=== PATIENT | female | born 1945 | race Caucasian/White ===

== ENCOUNTER 2024-05-02 12:19 | Outpatient (REF) | payer MEDICARE, SELFPAY | END 2024-05-02 12:20 | disposition home or self-care (01) | LOC: HO.LAB 12:19 | PROVIDERS: PCP Nurse Practitioner Family; Visit Provider Nurse Practitioner Family | DX: Z76.89 Persons encountering health services in other specified circumstances (principal); N39.0 Urinary tract infection, site not specified; I10 Essential (primary) hypertension; E78.2 Mixed hyperlipidemia; E03.9 Hypothyroidism, unspecified; F41.1 Generalized anxiety disorder; M81.0 Age-related osteoporosis without current pathological fracture; N90.4 Leukoplakia of vulva; F43.21 Adjustment disorder with depressed mood; M54.10 Radiculopathy, site unspecified; M70.71 Other bursitis of hip, right hip; Y93.9 Activity, unspecified | CPT/HCPCS: 87086; 96127; 99202 ==

== ENCOUNTER 2024-05-02 12:19 | Outpatient (AMB) | payer MEDICARE, SELFPAY ==
--- NOTE | 2024-05-02 12:26 | MHC.PC.OV ---
Vital Signs 05/02/24 12:40 Height 5 ft 7 in Weight 157 lb 2 oz BMI 24.6 BP 142/76 H Blood Pressure Location Rt brachial Position Sitting Respiration 13 Pulse 80 Pulse Source Pulse Oximeter Temp 97.9 F Temp Source Oral Pulse Oximetry (%) 97 Oxygen Delivery Method Room Air Intake Visit Reasons: Est. Care Intake Note: new patient to establish care, patient also needs refill on meds. Shield Cleaner Required: No Allergies clindamycin Allergy (Severe, Verified 05/02/24 12:55) Hives penicillins Allergy (Severe, Uncoded 05/02/24 12:55) Hives Medication List - Last Reconciled 05/02/24 by Yuliya Brandt, RESEARCH/PROGRAM DIRECTOR- alendronate mg PO amlodipine mg PO DAILY clobetasol 0.05% topical gabapentin 100 mg PO DAILY PRN levothyroxine mcg PO DAILY lorazepam 0.5 mg PO Q6H PRN lovastatin mg PO DAILY meclizine 25 mg PO TID PRN meloxicam mg PO DAILY naproxen 500 mg PO BID sulfamethoxazole-trimethoprim 400-80 mg tabs PO Tobacco use date assessed: 05/02/24 Fall risk assessment: No Falls in past year Last assessed Fall Risk: 05/02/24 Dental Screening Dental Screen Date: 05/02/24 Did you have a dental visit in the last 12 months?: Yes Did you have a dental problem in the last 6 months where you did not have access to dental care?: No Was dental information given to patient?: Patient has dentist HPI HPI Comments History of Present Illness Details [facility] 78 y/o F with hypothyroid, HLD, diverticulitis, renal cyst (CT 06/2019 simple bilat, recurrent UTI, lichen sclerosis, VERENICE, HTN, spigelian hernia (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/2019 small fat cont RLQ) SurgHx: appendectomy, tonsillectomy, hysterectomy, anterior cervical discectomy c5-7, lower anterior sigmoid colon resection 2016 d/t recurrent diverticulitis, R shoulder surgery 2016, RLQ incisional hernia repair w/ mesh 2019 FHx: Mom dementia, Dad stomach ca age 86, SocHx: , Addy, this year Health Maintenance: Colon: 2007 Mammo 06/2023 DEXA 01/2023 osteopenia PAP aged out Vaccines: All UTD to include flu AAA screen: EKG: Hunter of Care: RN CLINICAL QUALITY Gen Surg Ortho Neurosurgery History of Present Illness - The patient is a 78-year-old female presenting to [facility] Previous PCP: Kourtney - records reviewed prior to visit - Previous episodes of recurrent UTIs, often precipitated by stress or nervous events, managed with Bactrim (currently taken 1/2 tab QD for prophylaxis). Feels she has acute UTI that started a few days ago; Symptoms include burning after urination and an increased sense of pressure, with no fever, chills or vomiting reported. Essential Hypertension (on amlodipine), Hyperlipidemia (on lovastatin), and hypothyroidism (on levothyroxine). - osteoporosis managed with Fosamax, and Generalized Anxiety Disorder, periodically managed with lorazepam. - Chronic cervical radiculopathy intermittently treated with gabapentin, and a history of lichen sclerosus managed with clobetasol cream and current R hip bursitis managed with meloxicam by ortho, needs injection but this was delayed after recent of , Otis. is tomorrow. - Recently experienced significant emotional distress due to the loss of spouse. Both children live out of state. Physical Exam General: Well developed, well nourished, in no acute distress. Appears stated age. Head: Normocephalic, atraumatic. Eyes: Pupils are equal, round and reactive to light and accommodation. Conjunctivae are clear. Lungs: Clear to auscultation bilaterally. No rales, rhonchi or wheeze noted. Good air flow in all benito. Heart: Regular rate and rhythm. No murmurs, click, rubs or gallops are noted. Abdomen: Bowel sounds present in all quadrants. The abdomen is soft, nontender, with no masses or organomegaly noted. No hernias are noted. Psych: Mood and affect appropriate, though patient reports recent loss of and feelings of devastation. Results - Lab Tests: Urinalysis - see results below. Urine cx pending Discussion Notes I discussed the possibility of a urinary tract infection given the symptoms of burning and pressure after urination. A urinalysis will help confirm the diagnosis and guide further treatment. We talked about the need to refill medications through the mail-order pharmacy, and ensuring lorazepam is sent to the local pharmacy due to regulatory guidelines. I advised the patient about the non-fasting lab tests needed to monitor her thyroid function, vitamin levels, and other routine health checks. We reviewed the importance of managing stress, which seems to contribute to the recurrence of UTIs. The patient was provided with anticipatory guidance about self-care following her recent personal loss and was instructed to use the patient portal for easier communication regarding any medical needs or prescription refills. Assessment and Plan 1. Chronic urinary tract infection: - Urinary symptoms suggest an infection. Treat empirically with bactrim ds x 3 days, urine cx. Change tx plan prn 2. Essential Hypertension: - Continue management with amlodipine. 3. Hyperlipidemia: - Maintain lovastatin therapy, consistent with prior management. 4. Hypothyroidism: - Continue levothyroxine, monitor thyroid levels through lab testing. 5. Osteoporosis: - Ongoing management with alendronate, refills have been ensured. managed by straight truck driver 6. Generalized Anxiety Disorder: - Lorazepam to be continued as per need for anxiety, particularly noted stressors due to personal loss. Ok to use gabapentin at hs to help w anxiety and insomnia, too, with preference to limit ativan. 7. Radiculopathy: - Continued gabapentin use advised for symptomatic relief. 8. Lichen Sclerosus: - Continue topical clobetasol; lesions currently resolved. 9. Bursitis R hip: - Continued management with meloxicam, monitoring symptoms. Aware to not mix naproxen and meloxicam, one or the other. Patient Instructions - Continue all current medications as prescribed. - Follow up with urinalysis results to confirm UTI and await further instructions. - Refill medications via mail pharmacy; local pharmacy for lorazepam. - Use relaxation techniques and take lorazepam for anxiety as required. - Get lab work completed at your convenience, non-fasting required. - Utilize the patient portal for communication and prescription requests. - Maintain current health lifestyle and wellness activities. - Seek immediate care if symptoms worsen or new symptoms arise. - RTO 6 months sAWV, sooner PRN Consent Patient was informed and verbally consented to the use of an ambient scribe for clinic note documentation during this visit. Total time spent caring for the patient today was 62 minutes. This includes time spent before the visit reviewing the chart, time spent during the visit, and time spent after the visit on documentation, reviewing laboratory results, diagnostic imaging, medications, performing a medically necessary evaluation, counseling on diagnoses, care coordination, ordering appropriate tests, ordering appropriate medications, review of tests performed by other providers, reporting test results with the patient, communication with other healthcare providers. [facility] Medical History (Updated 05/02/24 @ 15:28 by Yuliya Brandt [facility]) Anxiety Arthritis Biceps tendinitis of shoulder (~2019) Colon, diverticulosis (~2016) H/O thyroid disease Hernia (~2019) High cholesterol HTN (hypertension) Osteoporosis Surgical History (Updated 05/02/24 @ 12:48 by King Adkins MA) H/O elbow surgery (~2000) H/O shoulder surgery (~2016) H/O: hysterectomy History of colonoscopy (~2006) History of incisional hernia repair (~2019) History of mammogram (~2023) Hx of spinal surgery (~2015) Family History (Updated 05/02/24 @ 12:51 by King Adkins MA) Mother HTN (hypertension) Diabetes Sister HTN (hypertension) Diabetes Thyroid disorder High cholesterol Father Stomach cancer Social History (Updated 05/02/24 @ 12:43 by King Adkins MA) Household Members: None Both parents involved: No Caregiver staying overnight: No Housing: House Are you a primary critical care paramedic to a significant other at home: No Do you presently have visiting nurse or other home services: No 75 years or older and lives alone: No Alcohol intake: current Alcohol intake frequency: a few times a month Patient Tobacco Use Status: Never used Tobacco e-Cigarette/Vaping Use: Never Used Second Hand Smoke Exposure: No service: No Current occupational status: retired Cognitive needs: No Hearing needs: No Vision needs: Yes (wear glasses) Questionnaire PHQ-9 Over the last 2 weeks, how often have you been bothered by any of the following problems? 1. Little interest or pleasure in doing things: not at all 2. Feeling down, depressed, or hopeless: not at all 3. Trouble falling or staying asleep, or sleeping too much: not at all 4. Feeling tired or having little energy: not at all 5. Poor appetite or overeating: not at all 6. Feeling bad about yourself - or that you are a failure or have let yourself or your family down: not at all 7. Trouble concentrating on things, such as reading the newspaper or watching television: not at all 8. Moving or speaking so slowly that other people could have noticed. Or the opposite - being so fidgety or restless that you have been moving around a lot more than usual: not at all 9. Thoughts that you would be better off or of hurting yourself in some way: not at all Total score: 0 Depression Screening Interpretation: Negative Depression Screening Done: Yes 60056 - PHQ-9 Billing: Yes Source: Developed by Drs. Ervin Daniel, Tessie Palumbo, Elliot Fonseca and colleagues, with an educational toribio from [employer]. Thrive Questionnaire Date Thrive assessed: 05/02/24 I am a: Patient What is your living situation today?: I have a steady place to live Within the past 12 months, did the food you bought not last and you didn't have the money to get more?: Never true Within the past 12 months, did you worry whether your food would run out before you got money to buy more?: Never true Do you have trouble paying for medicines?: Yes Do you have trouble getting transportation to medical appointments?: No Do you have trouble paying your heating and electricity bill?: No Do you have trouble taking care of your child, family member or friend?: No Do you have trouble with day-to-day activities such as bathing, preparing meals, shopping, managing finances, etc.?: No Are you currently unemployed and looking for a job?: No Are you interested in more education?: No Please select the resources that you would like help with: None Currently or been in a relationship where the following occur: No concerns reported THRIVE Score: 0 AUDIT C Alcohol Use Questionnaire (AUDIT-C) 1. How often do you have a drink containing alcohol?: Monthly or less 2. How many drinks containing alcohol do you have on a typical day when you are drinking?: 1 or 2 3. How often do you have six or more drinks on one occasion?: Never Total Score: 1 Score Reviewed/Action Taken: Yes VERENICE-7 AMB Questionnaire VERENICE-7 Date VERENICE - 7 assessed: 05/02/24 Feeling nervous, anxious, or on edge: 0 = Not at all Not being able to stop or control worryin = Not at all Worrying too much about different things: 0 = Not at all Trouble relaxin = Not at all Being so restless that it is hard to sit still: 0 = Not at all Becoming easily annoyed or irritable: 0 = Not at all Feeling afraid as if something awful might happen: 0 = Not at all Total VERENICE-7 score (0-4 normal; 5-9 mild; 10-14 moderate; 15-21 severe): 0 Source: Developed by Drs. Ervin Daniel, Tessie Palumbo, Elliot Fonseca and colleagues, with an educational toribio from [employer]. VERENICE-7 Assessment Billing VERENICE-7 Assessment Tool: VERENICE-7 Assessment 42337 Physical exam (Primary Care) Vital Signs: Last Vital Signs Temp 97.9 F 05/02/24 12:40 Pulse 80 05/02/24 12:40 Resp 13 05/02/24 12:40 BP 142/76 H 05/02/24 12:40 Pulse Ox 97 05/02/24 12:40 Oxygen Delivery Method Room Air 05/02/24 12:40 BMI result Body Mass Index 24.6 Tobacco/Smoking Status: Tobacco use Status Tobacco use date assessed 05/02/24 05/02/24 12:42 Patient Tobacco Use Status Never used Tobacco 05/02/24 12:43 e-Cigarette/Vaping Use Never Used 05/02/24 12:43 PHQ-9: PHQ-9 Score PHQ-9: Total score 0 05/02/24 12:54 Depression Screening Interpretation: Negative Thrive Assessment: Date of Thrive Assessment Date Thrive assessed 05/02/24 05/02/24 12:26 Currently or been in a relationship where the following occur: No concerns reported Results AMB Urinalysis, Automated UA Leukoctes 15 Reanna/uL Last Edit by King Adkins MA on 05/02/24 13:17 UA Nitrite Negative Last Edit by King Adkins MA on 05/02/24 13:17 UA Urobilinogen 3.5 mg/dL Last Edit by King Adkins MA on 05/02/24 13:17 UA Protein 0 mg/dL Last Edit by King Adkins MA on 05/02/24 13:17 UA pH 6.0 Last Edit by King Adkins MA on 05/02/24 13:17 UA Blood 0 Armando/uL Last Edit by King Adkins MA on 05/02/24 13:17 UA Specific Standard 1.015 Last Edit by King Adkins MA on 05/02/24 13:17 UA Ketone Positive Last Edit by King Adkins MA on 05/02/24 13:17 UA Bilirubin 0 mg/dL Last Edit by King Adkins MA on 05/02/24 13:17 UA Glucose 0 mg/dL Last Edit by King Adkins MA on 05/02/24 13:17 Results Reviewed Results Reviewed: Laboratory Last Values Urine pH (Auto) 6.0 05/02/24 12:54 Specific Standard (Auto) 1.015 05/02/24 12:54 Urine Protein (Auto) 0 mg/dL 05/02/24 12:54 Glucose (UA)(Auto) 0 mg/dL 05/02/24 12:54 Urine Ketones (Auto) Positive 05/02/24 12:54 Urine Blood (Auto) 0 Armando/uL 05/02/24 12:54 Urine Nitrite (Auto) Negative 05/02/24 12:54 Urine Bilirubin (Auto) 0 mg/dL 05/02/24 12:54 Urine Urobilinogen (Auto) 3.5 mg/dL 05/02/24 12:54 Leukocyte Esterase (Auto) 15 Reanna/uL 05/02/24 12:54 Coding Level of Care Code New Pt Level 5 (53886) Complex EM visit Add On G2211 Diagnoses Encounter to establish care Z76.89 Acquired hypothyroidism E03.9 Mixed hyperlipidemia E78.2 Hyperlipidemia type: mixed hyperlipidemia Essential (primary) hypertension I10 Recurrent UTI N39.0 VERENICE (generalized anxiety disorder) F41.1 Age-related osteoporosis without current pathological fracture M81.0 Presence of current pathological fracture: without current pathological fracture Osteoporosis type: age-related Lichen sclerosus of female genitalia N90.4 Grief F43.21 Additional Codes VERENICE-7 Assessment Billing - VERENICE-7 Assessment Tool: VERENICE-7 Assessment 18049 ([id number]) PHQ-9 - 68826 - PHQ-9 Billing: Yes ([id number]) Assessment & Plan Assessment & Plan (1) Encounter to establish care: Code(s): Z76.89 - Persons encountering health services in other specified circumstances (2) Acquired hypothyroidism: Code(s): E03.9 - Hypothyroidism, unspecified Category: Medical (3) Hyperlipidemia: Code(s): E78.5 - Hyperlipidemia, unspecified Category: Medical Qualifiers: Hyperlipidemia type: mixed hyperlipidemia Qualified Code(s): E78.2 - Mixed hyperlipidemia (4) Essential (primary) hypertension: Code(s): I10 - Essential (primary) hypertension Category: Medical (5) Recurrent UTI: Code(s): N39.0 - Urinary tract infection, site not specified Category: Medical (6) VERENICE (generalized anxiety disorder): Code(s): F41.1 - Generalized anxiety disorder Category: Medical (7) Osteoporosis: Comment: dexa 2022 Code(s): M81.0 - Age-related osteoporosis without current pathological fracture Category: Medical Qualifiers: Presence of current pathological fracture: without current pathological fracture Osteoporosis type: age-related Qualified Code(s): M81.0 - Age-related osteoporosis without current pathological fracture (8) Lichen sclerosus of female genitalia: Code(s): N90.4 - Leukoplakia of vulva Category: Medical (9) Grief: Code(s): F43.21 - Adjustment disorder with depressed mood Plan . Orders: Orders Complete Blood Count no Diff Today E03.9 - Hypothyroidism, unspecified, E78.5 - Hyperlipidemia, unspecified, I10 - Essential (primary) hypertension, M85.80 - Other specified disorders of bone density and structure, unspecified site Comprehensive Met. Panel Today E03.9 - Hypothyroidism, unspecified, E78.5 - Hyperlipidemia, unspecified, I10 - Essential (primary) hypertension, M85.80 - Other specified disorders of bone density and structure, unspecified site Microalbumin, Random (w Creat) Today E03.9 - Hypothyroidism, unspecified, E78.5 - Hyperlipidemia, unspecified, I10 - Essential (primary) hypertension, M85.80 - Other specified disorders of bone density and structure, unspecified site TSH reflex Free T4 Today E03.9 - Hypothyroidism, unspecified, E78.5 - Hyperlipidemia, unspecified, I10 - Essential (primary) hypertension, M85.80 - Other specified disorders of bone density and structure, unspecified site Vitamin D 25-OH Total Today E03.9 - Hypothyroidism, unspecified, E78.5 - Hyperlipidemia, unspecified, I10 - Essential (primary) hypertension, M85.80 - Other specified disorders of bone density and structure, unspecified site AMB Urinalysis Automated Today Z13.9 - Encounter for screening, unspecified Hemoglobin A1c Today E03.9 - Hypothyroidism, unspecified, E78.5 - Hyperlipidemia, unspecified, I10 - Essential (primary) hypertension, M85.80 - Other specified disorders of bone density and structure, unspecified site Lipid Panel Today E03.9 - Hypothyroidism, unspecified, E78.5 - Hyperlipidemia, unspecified, I10 - Essential (primary) hypertension, M85.80 - Other specified disorders of bone density and structure, unspecified site Vitamin B12 and Folate Today E03.9 - Hypothyroidism, unspecified, E78.5 - Hyperlipidemia, unspecified, I10 - Essential (primary) hypertension, M85.80 - Other specified disorders of bone density and structure, unspecified site Urine Culture Today N39.0 - Urinary tract infection, site not specified Medications: New gabapentin 100 mg PO DAILY PRN 90 caps 2RF pain insomnia anxiety levothyroxine 100 mcg PO DAILY 90 days 90 tabs 2RF naproxen 500 mg PO BID PRN 180 tabs 0RF pain meclizine 25 mg PO TID PRN 90 tabs 0RF dizziness lorazepam 0.5 mg PO Q6H PRN 30 tabs 0RF anxiety amlodipine 2.5 mg PO DAILY 90 tabs 2RF lovastatin 40 mg PO DAILY 90 tabs 2RF meloxicam 15 mg PO DAILY 90 tabs 0RF sulfamethoxazole-trimethoprim 400-80 mg 0.5 tabs PO DAILY 90 tabs 2RF sulfamethoxazole-trimethoprim 800-160 mg (Bactrim DS) TO BE USED TO TREAT ACUTE UTI ONLY 1 tab PO BID 3 days 6 tabs 1RF Patient Instructions: Walk-In Care (Urgent Care): We Make it Easy Walk-in for urgent medical issues such as: ? Seasonal Allergies ? Insect Bites ? Cough ? Diarrhea ? Acute Asthma Attacks ? Back, Knee or Joint Pain ? Ear Infection ? Fever without a Rash ? Headaches ? Nausea ? [place] [facility], Rash or Skin Irritation ? Sore Throat ? Sports Physicals ? Vomiting Most insurances are accepted. Patients do not need to be part of the [facility] to seek care at the walk-in clinic. Locations [facility] , [place] [address] ? [phone] [facility] Walk-In Care in [place] provides services to ages 18 and over. Open Thursday-Thursday: 8 a.m. to 5 p.m. and Thursday: 9 a.m. to 3 p.m.* *Hours may vary due to staffing availability. To confirm Walk-In Care hours in [place], please call [phone]. [address] [place] [address] ? [phone] [facility] Walk-In Care in [place] provides services to ages 12 and over. Open Thursday-Thursday: 8 a.m. to 5 p.m. Hours may vary due to staffing availability. To confirm Walk-In Care hours in [place], please call [phone]. LABORATORY SERVICES: [facility] Lab ? Primary Location [address] [place] [address] Thursday through Thursday 6:00 AM ? 5:00 PM Thursday 7:00 AM ? 11:00 AM* [phone] The [facility] Lab is centrally located near the front entrance of the [facility] for easy outpatient access. Convenient parking is provided for outpatients. *Hours may vary due to staffing availability. To confirm Laboratory hours for any location, please call [phone]. Offsite Location For your convenience, we offer offsite laboratory draw stations at the following locations: [address] [place] [address] ? [address], [address] Thursday through Thursday 7:30 AM ? 1:00 PM* [phone] *Hours may vary due to staffing availability. To confirm Laboratory hours for any location, please call [phone]. [place] ? [address] Thursday through Thursday 6:00 AM ? 3:30 PM* Thursday 6:30 AM ? 3 PM* [phone] *Hours may vary due to staffing availability. To confirm Laboratory hours for any location, please call [phone] [place] [address] Thursday through Thursday 7:30 AM ? 4:00 PM* [phone] *Hours may vary due to staffing availability. To confirm Laboratory hours for any location, please call [phone] [place] [address] Thursday through 9:00 AM ? 4:00 PM* *Hours may vary due to staffing availability. To confirm Laboratory hours for any location, please call [phone]. Appointments are not necessary. Walk-ins are welcome. Like all the departments throughout the [facility], our Lab undergoes frequent reviews to ensure the quality and accuracy of test results, and our staff takes special pride in its status as a nationally accredited facility. Patient Portal: ONE PATIENT. ONE RECORD. BETTER CARE. [facility] has a fully integrated, cutting-edge mobile electronic health information system that has revolutionized the way we care for our patients and manage our organization. This system improves communication and coordination enabling us to provide safe, higher-quality care, and an overall positive experience for staff and patients. Our first priority, as always, is to deliver the highest quality care possible. The system is running in the background supporting that priority. This portal is for all [facility] services and practices. If you are experiencing any technical difficulties with enrolling or logging into the Patient Portal please complete the [facility] Patient Portal Technical Support Form. [facility] now offers a new secure on-line interactive tool for patients to review their health information ? ?Patient Portal. This interactive web portal will enable patients and their families to take an active role in their care by providing easy, secure access to their health information via the internet. The Patient Portal provides patients with instant access to their health information, including laboratory results, medications, allergies, demographic information, visit history, and more. In addition to managing their own care, parents and health care proxies with authorized consent will appreciate the ability to access the records of those individuals for whom they provide care. Please note: if you wish to gain access (Proxy) to another patient?s portal, you will be required to come to the Medical Records Department in person at [facility]. Both the patient giving proxy access and the proxy will need to provide photo identification and complete the appropriate authorization. The Patient Portal also allows track their appointments online. The [facility] Patient Portal also saves patients time by allowing them to submit updates to their demographic and contact information prior to their visits. Portal email notifications will also alert patients to any new activity on their portal, such as test results and new appointments. In order to initially enroll in the [facility] Patient Portal, you will need to enter some required information including the following: your [facility] Medical Record number your personal home email address name date of Please note: In order to enroll in the [facility] Patient Portal, we need to have your email address on file in your electronic medical record. ?The email address needs to be specific for one person (yourself) in order for your Portal enrollment to be successful. ?You can update your email address in person with our Registration staff when you are registering for a hospital visit. ?Otherwise, you will need to come to the Health Information Management (Medical Records) Department at [facility]. ?We are open from Thursday ? Thursday from 7:30 a.m. ? 4:30 p.m. ?You will be required to present a photo id. Once you have successfully enrolled in the Patient Portal, you will receive a one-time user id and password for the Portal, sent to your email address. ?This will allow you to log into the Patient Portal within 99 hrs and reset your own logon id and password, and define personal security questions. ?Once your permanent login and password have been set, you can log into the [facility] Patient Portal at any time via the blue button above or from the Portal Logon button on any page of the [facility] website. [facility] and [facility] encourage all of our patients to enroll in Patient Portal as it presents a valuable opportunity for patients and their families to actively participate in their care and stay healthy Welcome to [facility]. ?We look forward to working with you.
[2024-05-02 12:40] VITALS: BP 142/76; PULSE 80; RESP 13; TEMP 36.6; O2SAT 97; BMI 24.6
--- OUTSIDE RECORDS SUMMARY | 2024-05-02 14:29 | XMS_ITS | Clinical Summary ---
Author Organization [facility] it Address [address] [place] [address] Care Team Providers Care Gear Room Keeper Name Role Phone Millicent Cisse MD Primary Care Provider [phone] Surgical History Surgery Date Site/Laterality Comments APPENDECTOMY PROCEDURE: HISTORICAL APPENDECTOMY TONSILLECTOMY PROCEDURE: HISTORICAL TONSILLECTOMY HYSTERECTOMY PROCEDURE: HISTORICAL HYSTERECTOMY BACK SURGERY 02/07/2016 PROCEDURE: HISTORICAL BACK SURGERY; COMMENT: Anterior cervical discectomy c5-c7 interbody devices, fusion Medical History Medical History Date Comments Pelvic pressure syndrome DX:Pelv ic pressure syndrome Hypothyroidism DX:Hypothyroidis m Right shoulder pain DX:Right александр ulder pain Osteoporosis DX:Osteoporosis High cholesterol DX:High cholest marcin Diverticulitis DX:Diverticuliti s Lichen sclerosus of female genitalia 01/22/2018 DX:Lichen sclerosus of female genitalia; COMMENT: Followed by Dr. 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 Small, bowel. Ref gen surg Renal cyst 07/01/2019 DX:Renal cyst; C OMMENT: CT 06/2019. Simple, bilateral. F/U US 3 months ordered Family History Medical History Relation Name Comments No Known Problems Brother Hyperlipidemia Daughter No Known Problems Father No Known Problems Mother No Known Problems Sister 1 No Known Problems Sister 2 No Known Problems Son Autoimmune disease Neg Hx Breast cancer Neg Hx Colon cancer Neg Hx Coronary artery disease Neg Hx Diabetes Neg Hx Heart attack Neg Hx Heart failure Neg Hx Hypertension Neg Hx Mental illness Neg Hx Prostate cancer Neg Hx Sleep apnea Neg Hx Thyroid disease Neg Hx Relation Name Status Comments Brother Alive Daughter Alive Father (Age 86) stomach ca ncer, diagnosed age 86 Maternal Grandfather (Age 69) ca ncer Maternal Grandmother (Age 84) de mentia Mother (Age 84) dementia Paternal Grandfather (Age 68) Paternal Grandmother (Age 80) st omach cancer Sister 1 Alive htn Sister 2 Alive asthma Son Alive Social History Tobacco Use Types Packs/Day Years Used Date Smoking Tobacco: Former Cigarettes Q uit: 02/16/1989 Smokeless Tobacco: Never Alcohol Use Standard Drinks/Week Comments Yes 0 (1 standard drink = 0.6 oz pur e alcohol) Comments Unknown Sex and Gender Information Value Date Recorded Sex Assigned at Not on file Legal Sex Female 9:39 AM EST Gender Identity Not on file Sexual Orientation Not on file Obstetrics History Last Filed Vital Signs Vital Sign Reading Time Taken Comments Blood Pressure 128/64 11/23/2023 8:47 AM EDT Pulse 64 11/23/2023 8:47 AM EDT Temperature - - Respiratory Rate - - Oxygen Saturation - - Inhaled Oxygen Concentration - - Weight 72.3 kg (159 lb 6.4 oz) 11/23/2023 8:47 A M EDT Height 170.2 cm (5' 7 ) 11/23/2023 8:47 AM EDT Body Mass Index 24.97 11/23/2023 8:47 AM EDT Plan of Treatment Health Maintenance Due Date Last Done Comments Pneumococcal Vaccine: 50+ Years (1 of 1 - PCV) 08/22/1995 RSV Immunization Patients 60+ Years Old (1 - 1-dose 75+ series) 2020 Cholesterol Screening (Lipid Panel) 01/25/2022 Depression Screening 01/25/2022 Falls Risk Assessment 01/25/2022 Hepatitis C Screening 01/25/2022 Osteoporosis Screening (Bone Density Screening) 01/25/2022 Social Influencers of Health Screening 01/25/2022 Hypertension/CHF/CAD Annual BMP Blood Test 03/18/2023 COVID-19 Vaccine ( season) 2023 06/01/2021, 11/06/2020, 04/15/2020, Additional history exists Influenza Vaccine (#1) 2023 , 11/13/2021, 11/12/2020 DTaP,Tdap,and Td Vaccines (3 - Td or Tdap) 07/29/2032 07/29/2022, 11/23/2009 Zoster Vaccines Completed 10/14/2017, 08/14/2017 HIB Vaccines Aged Out No longer eligi ble based on patient's age to complete this topic HPV Vaccines Aged Out No longer eligi ble based on patient's age to complete this topic Hepatitis A Vaccines Aged Out No long er eligible based on patient's age to complete this topic Hepatitis B Vaccines Aged Out No long er eligible based on patient's age to complete this topic IPV Vaccines Aged Out No longer eligi ble based on patient's age to complete this topic MMR Vaccines Aged Out No longer eligi ble based on patient's age to complete this topic Meningococcal ACWY Vaccine Aged Out N o longer eligible based on patient's age to complete this topic Meningococcal B Vacine Aged Out No lo nger eligible based on patient's age to complete this topic RSV Immunization Patients Under 20 months Aged Out No longer eligible based on patient's age to complete this topic Varicella Vaccines Aged Out No longer eligible based on patient's age to complete this topic Advance Directives Documents on File Type Date Recorded Patient Cloth Folder Machine Expl anation Health Care Decision (hx) 05/12/2016 TIARRA CHURCH DIRECTIVE Care Teams Gear Room Keeper Relationship Specialty Start Date End Date Millicent Cisse MD PCP - General 07/23/23
--- OUTSIDE RECORDS SUMMARY | 2024-05-02 14:29 | XMS_ITS | Clinical Summary ---
Author Organization [facility] Address [address] [place] [address] Care Team Providers Care Explosives Mixer Operator Name Role Phone Shalini Hanley MD Primary Care Provider Allergies Active Allergy Reactions Criticality Noted Date Comments Clindamycin 11/13/2016 Penicillins 11/13/2016 Medications Medication Sig Dispensed Refills Start Date End Date Status fluconazole (DIFLUCAN) 150 MG tablet TAKE 1 TABLET BY MOUTH AND REPEAT IN 48 HOURS DIRECTED 1 09/19/2016 Active LORazepam (ATIVAN) 0.5 MG tablet TAKE 1 TABLET BY MOUTH 1 TO 2 TIMES A DAY. ONLY TAKE IF NEEDED. 0 09/19/2016 Active nitrofurantoin, macrocrystal-monohydr ate, (MACROBID) 100 MG capsule TAKE ONE CAPSULE BY MOUTH TWICE A DAY FOR 10 DAYS 0 09/19/2016 Active SYNTHROID 75 MCG tablet 0 12/26/2016 Active alendronate (FOSAMAX) tablet 70 mg 0 02/19/2017 Active ciprofloxacin (CIPRO) 250 MG tablet TAKE 1 TABLET BY MOUTH 2 TIMES DAILY FOR 5 DAYS. 0 12/31/2016 Active lovastatin (MEVACOR) 20 MG tablet 0 12/26/2016 Active oxyCODONE-acetaminoph en (PERCOCET) 5-325 MG per tablet TAKE 1 TO 2 TABLETS BY MOUTH EVER 6 HOURS NEEDED FOR PAIN 0 12/31/2016 Active naproxen (NAPROSYN) 500 MG tablet 0 08/23/2017 Active predniSONE (DELTASONE) tablet 10 mg 0 05/28/2017 Active SHINGRIX 50 MCG injection ADM 0.5ML IM UTD 0 08/14/2017 Active Active Problems Problem Noted Date Diagnosed Date Chronic right shoulder pain 11/13/2016 Incomplete tear of right rotator cuff 11/13/2016 Social History Tobacco Use Types Packs/Day Years Used Date Smoking Tobacco: Former Smokeless Tobacco: Never Alcohol Use Standard Drinks/Week Comments Yes 0 (1 standard drink = 0.6 oz pur e alcohol) Sex and Gender Information Value Date Recorded Sex Assigned at Not on file Gender Identity Not on file Sexual Orientation Not on file Last Filed Vital Signs Vital Sign Reading Time Taken Comments Blood Pressure - - Pulse - - Temperature - - Respiratory Rate - - Oxygen Saturation - - Inhaled Oxygen Concentration - - Weight 73.9 kg (162 lb 14.7 oz) 018 11:29 AM EST Height 170 cm (5' 6.93 ) 03/06/2017 11: 29 AM EST Body Mass Index 25.57 03/06/2017 11:29 AM EST Plan of Treatment Health Maintenance Due Date Last Done Comments Hepatitis C Screening 1945 COVID-19 Vaccine (#1) 02/21/1946 Depression Screening 1957 Preventative Health Evaluation 08/22/1963 Shingrix-Zoster Vaccine (1 of 2) 08/22/1995 Fall Risk Assessment 2010 Osteoporosis Screening (DEXA Scan) 2010 Pneumococcal Vaccine (1 of 1 - PCV) 2010 DTap / Tdap / Td (2 - Td or Tdap) 11/24/2019 010 RSV Adult > 60+ Yrs or Pregn ant (1 - 1-dose 75+ series) 2020 Influenza Vaccine (#1) 2023 Hepatitis B Vaccines Aged Out No long er eligible based on patient's age to complete this topic RSV Ped < 20 months Aged Out No longe r eligible based on patient's age to complete this topic Care Teams Explosives Mixer Operator Relationship Specialty Start Date End Date Shalini Hanley MD PCP - General Internal Medicine 10/22/16
== END 2024-05-02 13:28 | disposition home or self-care (01) ==
PROVIDERS: PCP Nurse Practitioner Family; Visit Provider Nurse Practitioner Family
DX: Z76.89 Persons encountering health services in other specified circumstances (principal); E03.9 Hypothyroidism, unspecified; E78.2 Mixed hyperlipidemia; I10 Essential (primary) hypertension; N39.0 Urinary tract infection, site not specified; F41.1 Generalized anxiety disorder; M81.0 Age-related osteoporosis without current pathological fracture; N90.4 Leukoplakia of vulva; F43.21 Adjustment disorder with depressed mood

== ENCOUNTER 2024-05-16 10:46 | Outpatient (REF) | payer MEDICARE, SELFPAY ==
--- OUTSIDE RECORDS SUMMARY | 2024-05-16 12:12 | XMS_ITS | Clinical Summary ---
Author Organization [facility] Address [address] [place] [address] Care Team Providers Care Spud Grader Name Role Phone Shalini Hanley MD Primary [...] age to complete this topic Care Teams Spud Grader Relationship Specialty Start Date End Date Shalini Hanley MD PCP - General Internal Medicine 10/22/16
--- OUTSIDE RECORDS SUMMARY | 2024-05-16 12:12 | XMS_ITS | Clinical Summary ---
Author Organization [facility] Address [address] [place] [address] Care Team Providers Care Jukebox Route Driver Name Role Phone Millicent Cisse MD Primary Care Provider [phone] Surgical History Surgery Date Site/Laterality Comments APPENDECTOMY [...] Documents on File Type Date Recorded Patient Diet Attendant Expl anation Health Care Decision (hx) 05/12/2016 TIARRA CHUCRH DIRECTIVE Care Teams Jukebox Route Driver Relationship Specialty Start Date End Date Millicent Cisse MD PCP - General 07/23/23
[2024-05-16 12:46] LABS: Hematocrit 37.5 % (37.0-47.0); Hemoglobin 12.3 g/dl (12.0-16.0); Mean Corpuscular HGB Conc 32.8 g/dl (31.0-35.0); Mean Corpuscular Hemoglobin 30.8 pg (27.0-33.0); Mean Corpuscular Volume 93.8 fL (80.0-98.0); Platelet Count 412 X10*3/uL (160-400); Red Cell Distribution Width 13.2 % (11.0-16.0); White Blood Count 5.3 X10*3/uL (4.8-10.8)
[2024-05-16 13:06] LABS: Estimated Average Glucose 105 mg/dL; Hemoglobin A1c % 5.3 % (<6.0); Total Hemoglobin (HGBA1C) 3239.4964 umol/L
[2024-05-16 13:33] LABS: Alanine Aminotransferase 17 U/L (0-31); Albumin Level 4.3 g/dL (3.5-5.0); Alkaline Phosphatase 53 U/L (39-117); Anion Gap 12 (12-20); Aspartate Amino Transferase 29 U/L (5-31); Bilirubin Total 0.3 mg/dL (0.0-1.0); Blood Urea Nitrogen 8 mg/dL (9-16); Calcium 9.1 mg/dL (8.4-10.2); Carbon Dioxide 26 mmol/L (22-29); Chloride 101 mmol/L (96-108); Cholesterol 196 mg/dL (<200); Estimated Glomerular Filt Rate > 60; Glucose Random 110 mg/dL (60-115); HDL Cholesterol 60 mg/dL (>40); LDL Cholesterol Calculated 111 mg/dL (<100); Potassium 3.8 mmol/L (3.3-5.1); Sodium 135 mmol/L (135-145); TSH reflex Free T4 0.29 uIU/mL (0.32-4.0); Total Protein 6.8 g/dL (6.5-8.0); Triglycerides 128 mg/dL (<150); Vitamin D 25-OH Total 65.9 ng/mL (>30)
[2024-05-16 13:47] LABS: Folate 15.3 ng/mL (> or = 4.0); Vitamin B12 564 pg/mL (200-900)
[2024-05-16 14:03] LABS: Free T4 (Free Thyroxine) 1.37 ng/dL (0.71-1.85)
== END 2024-05-16 10:47 | disposition home or self-care (01) ==
LOC: HO.WFDLDS 10:46
PROVIDERS: Visit Provider Nurse Practitioner Family
DX: E03.9 Hypothyroidism, unspecified (principal); I10 Essential (primary) hypertension; E78.5 Hyperlipidemia, unspecified; M85.80 Other specified disorders of bone density and structure, unspecified site; Z13.1 Encounter for screening for diabetes mellitus
CPT/HCPCS: 36415; 80053; 80061; 82306; 82607; 82746; 83036; 84439; 84443; 85027

== ENCOUNTER 2024-05-24 13:45 | Outpatient (AMB) | payer MEDICARE, SELFPAY ==
--- NOTE | 2024-05-24 14:09 | A.OFFPC_ITS ---
Intake Visit Reasons: telehealth for lab review Intake Note: telehealth lab review Value Analyst Required: No Allergies clindamycin Allergy (Severe, Verified 05/24/24 14:57) Hives penicillins Allergy (Severe, Uncoded 05/24/24 14:57) Hives Medication List - Last Reconciled 05/24/24 by Yuliya Brandt, DATABASE MARKETING SPECIALIST- alendronate mg PO amlodipine 2.5 mg PO DAILY clobetasol 0.05% topical gabapentin 100 mg PO DAILY PRN levothyroxine 100 mcg PO DAILY 90 days lorazepam 0.5 mg PO Q6H PRN lovastatin 40 mg PO DAILY meclizine 25 mg PO TID PRN meloxicam 15 mg PO DAILY naproxen 500 mg PO BID PRN sulfamethoxazole-trimethoprim 400-80 mg 1 tab PO DAILY Tobacco use date assessed: 05/02/24 Fall risk assessment: No Falls in past year Last assessed Fall Risk: 05/24/24 Dental Screening Dental Screen Date: 05/02/24 HPI HPI Comments History of Present Illness Details [facility] routine [facility] 78 y/o F with hypothyroid, HLD, divertic ulitis, renal cyst (CT 06/2019 simple bilat, recurrent UTI, lichen sclerosis, VERENICE, HTN, spigelian hernia (CT 06/2019 small fat cont RLQ) SurgHx: appendectomy, tonsillectomy, hysterectomy, anterior cervical discectomy c5-7, lower anterior sigmoid colon resection 2016 d/t recurrent diverticulitis, R shoulder surgery 2016, RLQ incisional hernia repair w/ mesh 2019 FHx: Mom dementia, Dad stomach ca age 86, SocHx: , Addy, this year Health Maintenance: Colon: 2007 Mammo 06/2023 DEXA 01/2023 osteopenia PAP aged out Vaccines: All UTD to include flu AAA screen: EKG: [place] of Care: HOSPICE ENTRANCE ATTENDANT Gen Surg Ortho Neurosurgery History of Present Illness - The patient is a 78-year-old female pr esenting with hypothyroidism management concerns. She is on a daily dose of 100 mcg levothyroxine. Her recent labs indicated a low TSH level of 0.29 with a normal T4 level. She reports following her medication regimen accurately. Denies any hyperthyroid sx. - Iron deficiency anemia was indicated f rom laboratory findings. The patient denies bleeding, such as gastrointestinal signs, and reports weakness consistent with her baseline. She is currently taking meloxicam intermittently, about every 3 days. Denies abd pain. - The LDL cholesterol was marginally hig h at 111 mg/dL. No changes to her current lovastatin treatment are planned at this visit. - On bactrim QD for UTI. Wonders if she can take every other day . Results: Labs from 05/16/24 TSH low 0.29, normal t4, mild anemia rbc 4, plt ^ 412, MPV low 9, normal electrolytes, renal function, a1c 5.3%, normal LFT, LDL 111, Vit b12 and D normal Recheck thyroid labs, add iron and ferritin Assessment and Plan 1. Hypothyroidism: I will adjust the lev othyroxine dose from 100 mcg to 75 mcg daily due to a low TSH level of 0.29. A re-evaluation of thyroid function through laboratory tests will be conducted in six weeks to assess the effectiveness of this adjustment. 2. Iron Deficiency Anemia: Mild anemia i s noted with no symptomatic bleeding reported. Lab re-evaluation for this condition will coincide with the follow-up for thyroid function in six weeks. Further actions will depend on the laboratory findings. May need to come off NSAID and/or check OB stool. 3. Hyperlipidemia: The LDL cholesterol l evel is slightly elevated, but I have opted to maintain the current lovastatin dosage. Ongoing evaluation will determine if future intervention is necessary. 4. Recurrent UTI: ok to take bactrim rehan ry other day for prophylaxis RTO in 6 weeks for labs, and telehealth appt. Office sent message to schedule Prefers home # as primary [phone] Home Phone? [phone] Cell Phone? Telehealth Attestation This visit was conducted via telephone. I confirm that the documentation is accurate and comprehensive based on the information exchanged during this telehealth session. The patient has been explained that this is an interactive (audio/video) telehealth encounter and what that consists of. The patient understands and wishes to proceed. Protein Bar platform was used. Total time spent caring for the patient today was 17 minutes. This includes time spent before the visit reviewing the chart, time spent during the visit, and time spent after the visit on documentation, reviewing laboratory results, diagnostic imaging, medications, performing a medically necessary evaluation, counseling on diagnoses, care coordination, ordering appropriate tests, ordering appropriate medications, review of tests performed by other providers, reporting test results with the patient, communication with other healthcare providers. [facility] Medical History (Updated 05/24/24 @ 15:18 by Yuliya Brandt [facility]) Anxiety Arthritis Biceps tendinitis of shoulder (~2019) Colon, diverticulosis (~2016) H/O thyroid disease Hernia (~2019) High cholesterol HTN (hypertension) Osteoporosis Surgical History (Updated 05/02/24 @ 12:48 by King Adkins MA) H/O elbow surgery (~2000) H/O shoulder surgery (~2016) H/O: hysterectomy History of colonoscopy (~2006) History of incisional hernia repair (~2019) History of mammogram (~2023) Hx of spinal surgery (~2015) Family History (Updated 05/02/24 @ 12:51 by King Adkins MA) Mother HTN (hypertension) Diabetes Sister HTN (hypertension) Diabetes Thyroid disorder High cholesterol Father Stomach cancer Social History (Updated 05/02/24 @ 12:43 by King Adkins MA) Household Members: None Both parents involved: No Caregiver staying overnight: No Housing: House Are you a primary vp care management to a significant other at home: No Do you presently have visiting nurse or other home services: No 75 years or older and lives alone: No Alcohol intake: current Alcohol intake frequency: a few times a month Patient Tobacco Use Status: Never used Tobacco e-Cigarette/Vaping Use: Never Used Second Hand Smoke Exposure: No service: No Current occupational status: retired Cognitive needs: No Hearing needs: No Vision needs: Yes (wear glasses) Questionnaire Thrive Questionnaire Date Thrive assessed: 05/02/24 VERENICE-7 AMB Questionnaire VERENICE-7 Date VERENICE - 7 assessed: 05/02/24 Source: Developed by Drs. Ervin Daniel, Tessie Palumbo, Elliot Fonseca and colleagues, with an educational toribio from [employer]. Physical exam (Primary Care) Tobacco/Smoking Status: Tobacco use Status Tobacco use date assessed 05/02/24 05/24/24 14:10 Patient Tobacco Use Status Never used Tobacco 05/24/24 14:10 e-Cigarette/Vaping Use Never Used 05/24/24 14:10 Thrive Assessment: Date of Thrive Assessment Date Thrive assessed 05/02/24 05/24/24 14:10 Telehealth Telehealth Telehealth Platform: Protein Bar Location of provider rendering services: practice address Location of patient: address on file Patient Identification confirmed using: Name, : Yes Telehealth method: voice only Patient verbally consented to treatment: Yes Patient verbally consented to billing insurance company: Yes Patient informed of any privacy concerns related to visit: Yes Minutes spent on Phone/Video with Pt.: 9 Coding Level of Care Code Tele Est Pt Level 2 (05524) Complex EM visit Add On G2211 Diagnoses Acquired hypothyroidism E03.9 Mild anemia D64.9 Recurrent UTI N39.0 Mixed hyperlipidemia E78.2 Hyperlipidemia type: mixed hyperlipidemia Assessment & Plan Assessment & Plan (1) Acquired hypothyroidism: Code(s): E03.9 - Hypothyroidism, unspecified Category: Medical (2) Mild anemia: Code(s): D64.9 - Anemia, unspecified Category: Medical (3) Recurrent UTI: Code(s): N39.0 - Urinary tract infection, site not specified Category: Medical (4) Hyperlipidemia: Code(s): E78.5 - Hyperlipidemia, unspecified Category: Medical Qualifiers: Hyperlipidemia type: mixed hyperlipidemia Qualified Code(s): E78.2 - Mixed hyperlipidemia Plan . Orders: Orders TSH reflex Free T4 6 Weeks D64.9 - Anemia, unspecified, E03.9 - Hypothyroidism, unspecified Ferritin 6 Weeks D64.9 - Anemia, unspecified, E03.9 - Hypothyroidism, unspecified IRON PROFILE 6 Weeks D64.9 - Anemia, unspecified, E03.9 - Hypothyroidism, unspecified Complete Blood Count no Diff 6 Weeks D64.9 - Anemia, unspecified, E03.9 - Hypothyroidism, unspecified Medications: New levothyroxine 75 mcg PO DAILY 30 tabs 1RF Discontinued levothyroxine Discontinued Reason: Doctor's Order 100 mcg PO DAILY 90 days 90 tabs 2RF On Hold naproxen Hold Comment: Doctor's Order 500 mg PO BID PRN 180 tabs 0RF pain
--- OUTSIDE RECORDS SUMMARY | 2024-05-24 16:44 | XMS_ITS | Clinical Summary ---
Author Organization [facility] Address [address] [place] [address] Care Team Providers Care Producer Arborist Manager Name Role Phone Shalini Hanley MD Primary [...] age to complete this topic Care Teams Producer Arborist Manager Relationship Specialty Start Date End Date Shalini Hanley MD PCP - General Internal Medicine 10/22/16
--- OUTSIDE RECORDS SUMMARY | 2024-05-24 16:44 | XMS_ITS | Clinical Summary ---
Author Organization [facility] Address [address] [place] [address] Care Team Providers Care Freelance Translator Name Role Phone Millicent Cisse MD Primary Care Provider [phone] Surgical History Surgery Date Site/Laterality Comments APPENDECTOMY [...] of 1 - PCV) 08/22/1995 RSV Immunization Adult Patients (1 - 1-dose 75+ series) 2020 Cholesterol [...] age to complete this topic Meningococcal B Vaccine Aged Out No l onger eligible based on patient's age to complete this topic RSV Immunization Patients Under 20 months Aged Out No longer eligible based on patient's age to complete this topic Varicella Vaccines Aged Out No longer eligible based on patient's age to complete this topic Advance Directives Documents on File Type Date Recorded Patient Inspection And Testing Supervisor Expl anation Health Care Decision (hx) 05/12/2016 TIARRA CHURCH DIRECTIVE Care Teams Freelance Translator Relationship Specialty Start Date End Date Millicent Cisse MD PCP - General 07/23/23
== END 2024-05-24 15:25 | disposition home or self-care (01) ==
LOC: HO.HMCFM 13:45
PROVIDERS: PCP Nurse Practitioner Family; Visit Provider Nurse Practitioner Family
DX: E03.9 Hypothyroidism, unspecified (principal); D64.9 Anemia, unspecified; N39.0 Urinary tract infection, site not specified; E78.2 Mixed hyperlipidemia

== ENCOUNTER → 2024-05-24 13:45 | Outpatient (BNVA) | payer MEDICARE, SELFPAY | PROVIDERS: PCP Nurse Practitioner Family; Visit Provider Nurse Practitioner Family | DX: Z13.89 Encounter for screening for other disorder (principal) ==

== ENCOUNTER 2024-07-06 14:27 | Outpatient (REF) | payer MEDICARE, SELFPAY ==
--- OUTSIDE RECORDS SUMMARY | 2024-07-06 14:42 | XMS_ITS | Clinical Summary ---
Author Organization [facility] Address [address] [place] [address] Care Team Providers Care Stitch Burnisher Name Role Phone uLís Hale MD Primary Care Provider Surgical History Surgery Date Site/Laterality Comments APPENDECTOMY [...] 11/06/2020, 04/15/2020, Additional history exists Influenza Vaccine (Season Ended) 2024 11/11/2022, 11/13/2021, 11/12/2020 DTaP,Tdap,and Td Vaccines (3 - [...] Documents on File Type Date Recorded Patient Vessel Slagman Expl anation Health Care Decision (hx) 05/12/2016 TIARRA CHURCH DIRECTIVE Care Teams Stitch Burnisher Relationship Specialty Start Date End Date Lusí Hale MD [address] [place] [address] Dr Ken MA PCP - General Family Medicine 06/22/24
--- OUTSIDE RECORDS SUMMARY | 2024-07-06 14:42 | XMS_ITS | Clinical Summary ---
Author Organization [facility] Address [address] [place] [address] Care Team Providers Care Supply Technician Name Role Phone Shalini Hanley MD Primary [...] age to complete this topic Care Teams Supply Technician Relationship Specialty Start Date End Date Shalini Hanley MD PCP - General Internal Medicine 10/22/16
[2024-07-06 18:17] LABS: Hematocrit 34.6 % (37.0-47.0); Hemoglobin 11.7 g/dl (12.0-16.0); Mean Corpuscular HGB Conc 33.8 g/dl (31.0-35.0); Mean Corpuscular Hemoglobin 30.2 pg (27.0-33.0); Mean Corpuscular Volume 89.2 fL (80.0-98.0); Mean Platelet Volume 9.3 fL (9.4-12.3); Platelet Count 394 X10*3/uL (160-400); Red Blood Count 3.88 X10*6/uL (4.20-5.50); Red Cell Distribution Width 13.2 % (11.0-16.0); White Blood Count 4.8 X10*3/uL (4.8-10.8)
[2024-07-06 18:36] LABS: Iron 64 mcg/dL (30-160); Percent Iron Saturation 23 % (15-50); Total Iron Binding Capacity 277 mcg/dL (228-428); Unsaturated Iron Binding 213 ug/dL
[2024-07-06 18:51] LABS: Creatinine Urine 57.56 mg/dL; Microalbum/Creatinine Ratio Ur 15.6 ug/mg cr (<30)
[2024-07-06 18:51] LABS: Ferritin 29 ng/mL (10-250); TSH reflex Free T4 1.55 uIU/mL (0.32-4.0)
== END 2024-07-06 14:28 | disposition home or self-care (01) ==
LOC: HO.WFDLDS 14:27
PROVIDERS: Visit Provider Nurse Practitioner Family
DX: E03.9 Hypothyroidism, unspecified (principal); I10 Essential (primary) hypertension; E78.5 Hyperlipidemia, unspecified; M85.80 Other specified disorders of bone density and structure, unspecified site; D64.9 Anemia, unspecified
CPT/HCPCS: 36415; 82043; 82570; 82728; 83540; 84443; 85027

== ENCOUNTER 2024-07-13 14:15 | Outpatient (AMB) | payer MEDICARE, SELFPAY ==
--- NOTE | 2024-07-13 14:16 | A.OFFPC_ITS ---
Intake Visit Reasons: FU labs thyroid/anemia Intake Note: telehealth follow up to review labs. 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: No Allergies clindamycin Allergy (Severe, Verified 07/13/24 14:17) Hives penicillins Allergy (Severe, Uncoded 07/13/24 14:17) Hives Medication List - Last Reconciled 07/13/24 by Yuliya Brandt, TRIMMER AND BORER MACHINE OPERATOR- alendronate mg PO amlodipine 2.5 mg PO DAILY clobetasol 0.05% topical gabapentin 100 mg PO DAILY PRN levothyroxine 75 mcg PO DAILY lorazepam 0.5 mg PO Q6H PRN lovastatin 40 mg PO DAILY meclizine 25 mg PO TID PRN meloxicam 15 mg PO DAILY naproxen 500 mg PO BID PRN sulfamethoxazole-trimethoprim 400-80 mg 1 tab PO DAILY Tobacco use date assessed: 07/13/24 Fall risk assessment: No Falls in past year Last assessed Fall Risk: 07/13/24 Dental Screening Dental Screen Date: 07/13/24 Did you have a dental visit in the last 12 months?: No Did you have a dental problem in the last 6 months where you did not have access to dental care?: No Was dental information given to patient?: Patient has dentist HPI HPI Comments History of Present Illness Details [facility] 78 y/o F with hypothyroid, HLD, divertic ulitis, renal cyst (CT 06/2019 simple bilat, recurrent UTI, lichen sclerosis, VERENICE, HTN, spigelian hernia (CT 06/2019 small fat cont RLQ) SurgHx: appendectomy, tonsillectomy, hysterectomy, anterior cervical discectomy c5-7, lower anterior sigmoid colon resection 2016 d/t recurrent diverticulitis, R shoulder surgery 2016, RLQ incisional hernia repair w/ mesh 2019 FHx: Mom dementia, Dad stomach ca age 86, SocHx: , Addy, this year Health Maintenance: Colon: 2007 Mammo 06/2023 DEXA 01/2023 osteopenia PAP aged out Vaccines: All UTD to include flu AAA screen: EKG: [place] [employer] 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 - Anemia noted in labs, worsening trend. - No visible blood in urine or stool. - Normal iron stores. - Meloxicam use, low counts prior. - No recent cuts or injuries. - hypothyroid taking levothyroxine 75 m cg QD. Euthyroid on most recent labs. - chronic and severe hip pain. - onset >1 year. - Significant pain, impaired mobility. - No recent hip x-rays. - Steroid injection planned thursday at [facility] - Previous treatments ineffective. - interested in xray and referral to [facility] if not effective. Assessment and Plan 1. Hypothyroidism - Continue levothyroxine 75 mcg daily. - Refill 90-day supply via [facility]. 2. Anemia - Worsening anemia, plan fecal occult bl ood test. - If positive, gastroenterology referral & will need to consider stopping NSAIDs. 3. Hyperlipidemia - LDL 111, continue current therapy. - No changes needed. 4. Bursitis/hip pain - Steroid injection planned. - Consider orthopedic evaluation if no r elief. - Severe pain, impacting ambulation. - Consider orthopedic referral if no imp rovement. Telehealth Attestation This visit was conducted via telehealth with both audio and visual components. The information documented accurately reflects the patient's statements and the clinical assessment made during the encounter. The patient has been explained that this is an interactive (audio/video) telehealth encounter and what that consists of. The patient understands and wishes to proceed. [employer] platform was used. Total time spent caring for the patient today was 15 minutes. This includes time spent before the visit reviewing the chart, time spent during the visit, and time spent after the visit on documentation, reviewing laboratory results, diagnostic imaging, medications, performing a medically necessary evaluation, counseling on diagnoses, care coordination, ordering appropriate tests, ordering appropriate medications, review of tests performed by other providers, reporting test results with the patient, communication with other healthcare providers. [facility] Medical History (Updated 05/24/24 @ 15:18 [facility] Anxiety Arthritis Biceps tendinitis of shoulder (~2019) Colon, diverticulosis (~2016) H/O thyroid disease Hernia (~2019) High cholesterol HTN (hypertension) Osteoporosis Surgical History (Updated 05/02/24 @ 12:48 by King Adkins MA) H/O elbow surgery (~2000) H/O shoulder surgery (~2016) H/O: hysterectomy History of colonoscopy (~2006) History of incisional hernia repair (~2019) History of mammogram (~2023) Hx of spinal surgery (~2015) Family History (Updated 05/02/24 @ 12:51 by King Adkins MA) Mother HTN (hypertension) Diabetes Sister HTN (hypertension) Diabetes Thyroid disorder High cholesterol Father Stomach cancer Social History (Updated 05/02/24 @ 12:43 by King Adkins MA) Household Members: None Both parents involved: No Caregiver staying overnight: No Housing: House Are you a primary health care legal assistant to a significant other at home: No Do you presently have visiting nurse or other home services: No 75 years or older and lives alone: No Alcohol intake: current Alcohol intake frequency: a few times a month Patient Tobacco Use Status: Never used Tobacco e-Cigarette/Vaping Use: Never Used Second Hand Smoke Exposure: No service: No Current occupational status: retired Cognitive needs: No Hearing needs: No Vision needs: Yes (wear glasses) Questionnaire Thrive Questionnaire Date Thrive assessed: 05/02/24 VERENICE-7 AMB Questionnaire VERENICE-7 Date VERENICE - 7 assessed: 05/02/24 Source: Developed by Drs. Ervin Daniel, Tessie Palumbo, Elliot Fonseca and colleagues, with an educational toribio from [email or web address]. Physical exam (Primary Care) Tobacco/Smoking Status: Tobacco use Status Tobacco use date assessed 07/13/24 07/13/24 14:18 Patient Tobacco Use Status Never used Tobacco 07/13/24 14:18 e-Cigarette/Vaping Use Never Used 07/13/24 14:18 Thrive Assessment: Date of Thrive Assessment Date Thrive assessed 05/02/24 07/13/24 14:18 Telehealth Telehealth Telehealth Platform: [facility] Location of provider rendering services: practice address Location of patient: address on file Patient Identification confirmed using: Name, : Yes Telehealth method: voice only Patient verbally consented to treatment: Yes Patient verbally consented to billing insurance company: Yes Patient informed of any privacy concerns related to visit: Yes Minutes spent on Phone/Video with Pt.: 9 Coding Level of Care Code Tele Est Pt Level 2 (39983) Complex EM visit Add On G2211 Diagnoses Mild anemia D64.9 Acquired hypothyroidism E03.9 Assessment & Plan Assessment & Plan (1) Mild anemia: Code(s): D64.9 - Anemia, unspecified Category: Medical (2) Acquired hypothyroidism: Code(s): E03.9 - Hypothyroidism, unspecified Category: Medical Plan . Orders: Orders AMB Stool Cards / FIT Kit Given Today Z12.11 - Encounter for screening for malignant neoplasm of colon Medications: Refilled levothyroxine 75 mcg PO DAILY 90 tabs 1RF
--- OUTSIDE RECORDS SUMMARY | 2024-07-13 15:09 | XMS_ITS | Clinical Summary ---
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
== END 2024-07-13 16:03 | disposition home or self-care (01) ==
LOC: HO.HMCFM 14:15
PROVIDERS: PCP Nurse Practitioner Family; Visit Provider Nurse Practitioner Family
DX: D64.9 Anemia, unspecified (principal); E03.9 Hypothyroidism, unspecified

== ENCOUNTER → 2024-07-13 14:15 | Outpatient (BNVA) | payer MEDICARE, SELFPAY | PROVIDERS: PCP Nurse Practitioner Family; Visit Provider Nurse Practitioner Family ==

== ENCOUNTER 2024-07-14 11:42 | Outpatient (REF) | payer MEDICARE, SELFPAY ==
[2024-07-18 12:06] LABS: OBS Int Ctl Valid YES; OBS1 NEGATIVE (NEGATIVE); OBS2 NEGATIVE (NEGATIVE); OBS3 NEGATIVE (NEGATIVE)
[2024-07-18 12:07] LABS: OBS Lot 50142
--- OUTSIDE RECORDS SUMMARY | 2024-07-18 13:02 | XMS_ITS | Clinical Summary ---
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
== END 2024-07-14 11:43 | disposition home or self-care (01) ==
LOC: HO.LNP 11:42
PROVIDERS: Visit Provider Nurse Practitioner Family
DX: Z12.11 Encounter for screening for malignant neoplasm of colon (principal); Z12.12 Encounter for screening for malignant neoplasm of rectum
CPT/HCPCS: 82270

== ENCOUNTER 2024-10-24 09:48 | Outpatient (REF) | payer MEDICARE, SELFPAY ==
--- OUTSIDE RECORDS SUMMARY | 2024-10-24 11:20 | XMS_ITS ---
[facility] Name [facility] Organization Unknown Care Team Organization Name Specialty Phone Email Start Date End Da te [facility] Nikki Bales MD Primary Care 12/24/2021 10/05/2023
--- OUTSIDE RECORDS SUMMARY | 2024-10-24 11:20 | XMS_ITS | Clinical Summary ---
Author Organization [facility] Address [address] [place] [address] Care Team Providers Care Steam And Power Superintendent Name Role Phone Shalini Hanley MD Primary [...] 1-dose 75+ series) 2020 Influenza Vaccine (#1) 2024 Hepatitis B Vaccines Aged Out No long er eligible based on patient's age to complete this topic RSV Ped < 20 months Aged Out No longe r eligible based on patient's age to complete this topic Care Teams Steam And Power Superintendent Relationship Specialty Start Date End Date Shalini Hanley MD PCP - General Internal Medicine 10/22/16
--- OUTSIDE RECORDS SUMMARY | 2024-10-24 11:20 | XMS_ITS | Clinical Summary ---
[facility] Organization [facility] Address [address] [place] [address] Care Team Providers Care Fuel Island Attendant Name Role Phone Luís Hale MD Primary Care Provider [phone] Surgical History Surgery Date Site/Laterality Comments APPENDECTOMY [...] series) 2020 Cholesterol Screening (Lipid Panel) 01/25/2022 Falls Risk Assessment 01/25/2022 Hepatitis C Screening 01/25/2022 Osteoporosis Screening (Bone Density Screening) 01/25/2022 Social Influencers of Health Screening 01/25/2022 Hypertension/CHF/CAD Annual BMP Blood Test 03/18/2023 Depression Screening 02/17/2024 COVID-19 Vaccine ( season) 2024 06/01/2021, 11/06/2020, 04/15/2020, Additional history exists Influenza Vaccine (#1) 2024 , 11/13/2021, 11/12/2020 DTaP,Tdap,and Td Vaccines (3 [...] Documents on File Type Date Recorded Patient Zinc Plate Cutter Expl anation Health Care Decision (hx) 05/12/2016 TIARRA CHURCH DIRECTIVE Care Teams Fuel Island Attendant Relationship Specialty Start Date End Date Luís Hale MD [address] [place] [address] Dr Ken MA PCP - General Family Medicine 06/22/24
[2024-10-24 15:29] LABS: Hematocrit 37.2 % (37.0-47.0); Hemoglobin 11.9 g/dl (12.0-16.0); Mean Corpuscular HGB Conc 32.0 g/dl (31.0-35.0); Mean Corpuscular Hemoglobin 30.2 pg (27.0-33.0); Mean Corpuscular Volume 94.4 fL (80.0-98.0); NRBC Abs Auto 0.000 X10*3/uL (0.0-0.012); NRBC Pct Auto 0.0 /100WBC (0.0-0.2); Platelet Count 405 X10*3/uL (160-400); Red Blood Count 3.94 X10*6/uL (4.20-5.50); White Blood Count 4.4 X10*3/uL (4.8-10.8)
[2024-10-24 15:58] LABS: Alanine Aminotransferase 24 U/L (0-31); Albumin Level 4.5 g/dL (3.5-5.0); Alkaline Phosphatase 92 U/L (39-117); Anion Gap 13 (12-20); Aspartate Amino Transferase 45 U/L (5-31); Blood Urea Nitrogen 7 mg/dL (9-16); Calcium 9.5 mg/dL (8.4-10.2); Carbon Dioxide 26 mmol/L (22-29); Chloride 104 mmol/L (96-108); Cholesterol 190 mg/dL (<200); Estimated Glomerular Filt Rate > 60; HDL Cholesterol 63 mg/dL (>40); Iron 53 mcg/dL (30-160); Percent Iron Saturation 18 % (15-50); Potassium 3.7 mmol/L (3.3-5.1); Sodium 139 mmol/L (135-145); Total Iron Binding Capacity 291 mcg/dL (228-428); Total Protein 7.3 g/dL (6.5-8.0); Triglycerides 118 mg/dL (<150); Unsaturated Iron Binding 238 ug/dL
[2024-10-24 16:00] LABS: Ferritin 27 ng/mL (10-250)
== END 2024-10-24 09:49 | disposition home or self-care (01) ==
LOC: HO.WFDLDS 09:48
PROVIDERS: Visit Provider Nurse Practitioner Family
DX: E78.2 Mixed hyperlipidemia (principal); E03.9 Hypothyroidism, unspecified; I10 Essential (primary) hypertension; D64.9 Anemia, unspecified
CPT/HCPCS: 36415; 80053; 80061; 82306; 82728; 83540; 84443; 85027

== ENCOUNTER 2024-11-04 10:14 | Outpatient (AMB) | payer MEDICARE, SELFPAY ==
--- NOTE | 2024-11-04 10:21 | MHC.PC.OV ---
Vital Signs 11/04/24 10:22 Height 5 ft 7 in Weight 152 lb 6 oz BMI 23.9 BP 142/90 H Blood Pressure Location Rt brachial Position Sitting Pulse 78 Pulse Source Pulse Oximeter Pulse Oximetry (%) 97 Oxygen Delivery Method Room Air Intake Visit Reasons: 6 MONTHS AWV 30 MIN Allergies clindamycin Allergy (Severe, Verified 11/04/24 10:23) Hives penicillins Allergy (Severe, Uncoded 11/04/24 10:23) Hives Tobacco use date assessed: 11/04/24 Fall risk assessment: 1 Fall in past year Last assessed Fall Risk: 11/04/24 Dental Screening Dental Screen Date: 11/04/24 Did you have a dental visit in the last 12 months?: Yes Did you have a dental problem in the last 6 months where you did not have access to dental care?: No Was dental information given to patient?: Patient has dentist [facility] Medical History Anxiety Osteoporosis Arthritis H/O thyroid disease High cholesterol HTN (hypertension) Hernia (~2019) Biceps tendinitis of shoulder (~2019) Colon, diverticulosis (~2016) Surgical History Hx of spinal surgery (~2015) H/O shoulder surgery (~2016) H/O elbow surgery (~2000) H/O: hysterectomy History of incisional hernia repair (~2019) History of mammogram (~2023) History of colonoscopy (~2006) Family History Mother HTN (hypertension) Diabetes Sister HTN (hypertension) Diabetes Thyroid disorder High cholesterol Father Stomach cancer Social History Household Members: None Both parents involved: No Caregiver staying overnight: No Housing: House Are you a primary caretaker resort to a significant other at home: No Do you presently have visiting nurse or other home services: No 75 years or older and lives alone: No Alcohol intake: current Alcohol intake frequency: a few times a month Patient Tobacco Use Status: Never used Tobacco e-Cigarette/Vaping Use: Never Used Second Hand Smoke Exposure: No service: No Current occupational status: retired Cognitive needs: No Hearing needs: No Vision needs: Yes (wear glasses) Questionnaire PHQ-9 Over the last 2 weeks, how often have you been bothered by any of the following problems? 1. Little interest or pleasure in doing things: not at all 2. Feeling down, depressed, or hopeless: not at all 3. Trouble falling or staying asleep, or sleeping too much: not at all 4. Feeling tired or having little energy: not at all 5. Poor appetite or overeating: not at all 6. Feeling bad about yourself - or that you are a failure or have let yourself or your family down: not at all 7. Trouble concentrating on things, such as reading the newspaper or watching television: not at all 8. Moving or speaking so slowly that other people could have noticed. Or the opposite - being so fidgety or restless that you have been moving around a lot more than usual: not at all 9. Thoughts that you would be better off or of hurting yourself in some way: not at all Total score: 0 Depression Screening Interpretation: Negative Depression Screening Done: Yes Source: Developed by Drs. Ervin Daniel, Tessie Palumbo, Elliot Fonseca and colleagues, with an educational toribio from [employer]. Thrive Questionnaire Date Thrive assessed: 05/02/24 I am a: Patient What is your living situation today?: I have a steady place to live Within the past 12 months, did the food you bought not last and you didn't have the money to get more?: Never true Within the past 12 months, did you worry whether your food would run out before you got money to buy more?: Never true Do you have trouble paying for medicines?: Yes Do you have trouble getting transportation to medical appointments?: No Do you have trouble paying your heating and electricity bill?: No Do you have trouble taking care of your child, family member or friend?: No Do you have trouble with day-to-day activities such as bathing, preparing meals, shopping, managing finances, etc.?: No Are you currently unemployed and looking for a job?: No Are you interested in more education?: No Please select the resources that you would like help with: None Currently or been in a relationship where the following occur: No concerns reported THRIVE Score: 0 AUDIT C Alcohol Use Questionnaire (AUDIT-C) 1. How often do you have a drink containing alcohol?: Monthly or less 2. How many drinks containing alcohol do you have on a typical day when you are drinking?: 1 or 2 3. How often do you have six or more drinks on one occasion?: Never Total Score: 1 Score Reviewed/Action Taken: Yes VERENICE-7 AMB Questionnaire VERENICE-7 Date VERENICE - 7 assessed: 05/02/24 Feeling nervous, anxious, or on edge: 0 = Not at all Not being able to stop or control worryin = Not at all Worrying too much about different things: 0 = Not at all Trouble relaxin = Not at all Being so restless that it is hard to sit still: 0 = Not at all Becoming easily annoyed or irritable: 0 = Not at all Feeling afraid as if something awful might happen: 0 = Not at all Total VERENICE-7 score (0-4 normal; 5-9 mild; 10-14 moderate; 15-21 severe): 0 Source: Developed by Drs. Ervin Daniel, Tessie Palumbo, Elliot Fonseca and colleagues, with an educational toribio from [employer]. Physical exam (Primary Care) Vital Signs: Last Vital Signs Pulse 78 11/04/24 10:22 BP 142/90 H 11/04/24 10:22 Pulse Ox 97 11/04/24 10:22 Oxygen Delivery Method Room Air 11/04/24 10:22 BMI result Body Mass Index 23.9 Tobacco/Smoking Status: Tobacco use Status Tobacco use date assessed 11/04/24 11/04/24 10:25 Patient Tobacco Use Status Never used Tobacco 11/04/24 10:25 e-Cigarette/Vaping Use Never Used 11/04/24 10:25 PHQ-9: PHQ-9 Score PHQ-9: Total score 0 11/04/24 10:25 Depression Screening Interpretation: Negative Thrive Assessment: Date of Thrive Assessment Date Thrive assessed 05/02/24 11/04/24 10:25 Currently or been in a relationship where the following occur: No concerns reported Coding
[2024-11-04 10:22] VITALS: BP 142/90; PULSE 78; O2SAT 97; BMI 23.9
--- NOTE | 2024-11-04 10:26 | AM.OFFVISMDC ---
Intake Vital Signs 11/04/24 10:22 11/04/24 11:11 Height 5 ft 7 in Weight 152 lb 6 oz BMI 23.9 BP 142/90 H 118/62 Blood Pressure Location Rt brachial Lt brachial Position Sitting Sitting Pulse 78 Pulse Source Pulse Oximeter Pulse Oximetry (%) 97 Oxygen Delivery Method Room Air Intake Visit Reasons: 6 MONTHS AWV 30 MIN Allergies clindamycin Allergy (Severe, Verified 11/04/24 10:37) Hives penicillins Allergy (Severe, Uncoded 11/04/24 10:23) Hives Medication List - Last Reconciled 11/04/24 by Yuliya Brandt, FREELANCE DIRECTOR- alendronate mg PO amlodipine 2.5 mg PO DAILY clobetasol 0.05% topical gabapentin 100 mg PO DAILY PRN levothyroxine 75 mcg PO DAILY lorazepam 0.5 mg PO Q6H PRN lovastatin 40 mg PO DAILY meclizine 25 mg PO TID PRN meloxicam 15 mg PO DAILY naproxen 500 mg PO BID PRN Held on 05/24/24. Instructions: Doctor's Order sulfamethoxazole-trimethoprim 400-80 mg 1 tab PO DAILY HPI HPI Comments History of Present Illness Details Here today for AWV. The Medicare Annual Wellness Visit (AWV) is a yearly appointment with a health professional to identify health risks and help reduce them and to create or update a personalized prevention plan. During a Medicare AWV, health professionals should also review any current opioid prescriptions, detect any cognitive impairment, and establish or update medical and family history. 79 y/o F with hypothyroid, HLD, diverticulitis, renal cyst (CT 06/2019 simple bilat, recurrent UTI, lichen sclerosis, VERENICE, HTN, spigelian hernia (CT 06/2019 small fat cont RLQ) SurgHx: appendectomy, tonsillectomy, hysterectomy, anterior cervical discectomy c5-7, lower anterior sigmoid colon resection 2017 d/t recurrent diverticulitis, R shoulder surgery 2016, RLQ incisional hernia repair w/ mesh 2019 FHx: Mom dementia, Dad stomach ca age 86, SocHx: , Addy, this year Health Maintenance: See scanned preventative medicine assessment with personalized health plan and screening schedule. Colon: 2006 Mammo 2024 DEXA 2024 PAP Vaccines: All UTD to include flu AAA screen EKG: done today, NSR [place] of Care: [facility] [employer] dr cano, has appt upcoming, he is managing DEXA Gen Surg Ortho Neurosurgery Derm Visual Acuity: wears glasses, last eye exam August 2024; annual appts Hearing Screening: no concerns ACP: Dietary/Nutrition/Exercise Edu provided: Y During the course of the visit the patient was educated and counseled about appropriate screening and preventative services. Patient instructions were provided to the patient in written or electronic format. I have reviewed and verified the above information. History of Present Illness The patient is a 79-year-old female presenting with an annual Medicare visit. Osteoporosis: - On Fosamax. Essential Hypertension: - On Amlodipine. Hypothyroidism: - On Levothyroxine. Hyperlipidemia: - On lovastatin; cholesterol checked. Generalized Anxiety Disorder: - Uses Lorazepam as needed. Chronic Bursitis: - Using Meloxicam and Naproxen. - Recent exacerbation. - Seeing [facility] next month Recurrent Urinary Tract Infections: - On Bactrim prophylactically; Bactrim DS for acute episodes. Mild anemia - labs stable; FOB neg; reports easy bruising over last year. Family History - Brother: History of anxiety - Sister: History of urinary tract infections Social History - Lives independently. - Uses a cane for ambulation during bursitis flare-ups. Health Maintenance - Recent bone density test and mammogram completed at [place]. - Annual eye exam completed in August. - COVID-19 and flu vaccines discussed; flu shot administered. - Urine test kit to monitor for UTIs provided. Review of Systems - Musculoskeletal: Reports hip pain, uses a cane. - Urinary: Reports a history of recurrent UTIs. Physical Exam General: Well developed, well nourished, in no acute distress. Appears stated age. Head: Normocephalic, atraumatic. Eyes: Pupils are equal, round and reactive to light and accommodation. Conjunctivae are clear. Vision grossly normal. Ears: TMs clear AU, EACS WNL Nose: Patent, without discharge. Neck: Supple, no adenopathy or thyromegaly. Breast: Edu on SBE Lungs: Clear to auscultation bilaterally. No rales, rhonchi or wheeze noted. Good air flow in all benito. Heart: Regular rate and rhythm. 2/6 murmurs, No click, rubs or gallops are noted. Abdomen: Bowel sounds present in all quadrants. The abdomen is soft, nontender, with no masses or organomegaly noted. No hernias are noted. : Deferred. Reviewed recommendations for routine [facility] Pulses: Peripheral pulses are equal and palpable bilaterally. Extremities: No clubbing, cyanosis nor edema is noted. See pics below for skin of legs Neurologic: Gait and station normal. Cranial Nerves 2-12 intact. Motor strength grossly symmetrical and intact. No sensory loss. Balance normal. Skin: No rashes, ulcers, or lesions noted. Turgor is good. Skin color is good. Hair and nails are without abnormalities. Psych: Normal eye contact, affect and mood appropriate, and normal interactions. Patient is alert and appropriate to context. Results - Labs: Hemoglobin A1c 5.2; Total cholesterol 190 mg/dL. - Tests and Diagnostics: EKG shows normal sinus rhythm. Discussion Notes During the visit, I discussed the management of the patient's ongoing conditions, including her osteoporosis, hypertension, hypothyroidism, and hyperlipidemia. We reviewed her medication regimen and discussed renewing prescriptions for her chronic conditions. I advised continuing the current treatment plan for her osteoporosis with Fosamax and her blood pressure with Amlodipine. For her thyroid condition, based on current labs, Levothyroxine should remain unchanged. The hyperlipidemia is well controlled with Lodistatin, and no changes are necessary. Given her anxiety and intermittent use of Lorazepam, I agreed to renew her prescription. We explored alternatives for preventing recurrent urinary tract infections, including [id number]-sia-bgrtvsw options like D-mannose. I suggested having a urine kit ready for use at the onset of symptoms and discussed submitting a urine sample for culture to guide appropriate antibiotic therapy. Regarding her bursitis, I emphasized the importance of not combining NSAIDs and encouraged the use of Tylenol as needed. We also discussed the benefit of a steroid injection for relief of bursitis symptoms. Health maintenance topics, including vaccinations and screenings, were reviewed, with flu vaccination administered during the visit. Patient was given time to ask questions. All questions were answered to their satisfaction. Assessment and Plan 1. Osteoporosis - Continue Fosamax. 2. Essential Hypertension - Continue Amlodipine. 3. Hypothyroidism - Continue Levothyroxine. 4. Hyperlipidemia - Continue Lodistatin. 5. Generalized Anxiety Disorder - Renew Lorazepam. 6. Chronic Bursitis - Manage with Meloxicam; C ortho - steroid considered. 7. Recurrent Urinary Tract Infections - Continue prophylactic Bactrim. - check urine for bacteria start d mannose 8 anemia and bruising, refer [place] [facility] Patient Instructions - Take Tylenol as needed for bursitis flare-ups. - Do not take Meloxicam and Naproxen together. - Collect urine sample at onset of UTI symptoms. - Submit urine culture for accurate antibiotic matching. - Follow through with planned vaccinations. - Bring healthcare proxy form with updates next visit. RTO 6 mo for routine visit, labs 1 week before, sooner as needed. Consent During the visit, patient consent was obtained to administer vaccines and renew current medications. The patient acknowledged understanding of the recommended use and potential side effects of each medication, including the use of Tylenol and avoidance of combining NSAIDs. Additionally, she consented to try Sarna Anti-Itch for her skin complaints and took home the recommended health maintenance documentation to review further. Patient was informed and verbally consented to the use of an ambient scribe for clinic note documentation during this visit. An additional 30 minutes was spent addressing the problem(s) noted at todays visit. This includes time spent before the visit reviewing the chart, time spent during the visit, and time spent after the visit on documentation reviewing laboratory results, diagnostic imaging, medications, performing a medically necessary evaluation, counseling on diagnoses, care coordination, ordering appropriate tests, ordering appropriate medications, review of tests performed by other providers, reporting test results with the patient, communication with other healthcare providers. [facility] Medical History (Updated 11/04/24 @ 14:39 by Yuliya Brandt [facility]) Anxiety Arthritis Biceps tendinitis of shoulder (~2019) Colon, diverticulosis (~2016) H/O thyroid disease Hernia (~2019) High cholesterol HTN (hypertension) Osteoporosis Surgical History (Updated 11/04/24 @ 11:22 [facility] H/O elbow surgery (~2000) H/O shoulder surgery (~2016) H/O: hysterectomy History of colonoscopy (~2006) History of incisional hernia repair (~2019) History of mammogram (~2024) Hx of spinal surgery (~2015) Family History Mother HTN (hypertension) Diabetes Sister HTN (hypertension) Diabetes Thyroid disorder High cholesterol Father Stomach cancer Social History Household Members: None Both parents involved: No Caregiver staying overnight: No Housing: House Are you a primary menagerie caretaker to a significant other at home: No Do you presently have visiting nurse or other home services: No 75 years or older and lives alone: No Alcohol intake: current Alcohol intake frequency: a few times a month Patient Tobacco Use Status: Never used Tobacco e-Cigarette/Vaping Use: Never Used Second Hand Smoke Exposure: No service: No Current occupational status: retired Cognitive needs: No Hearing needs: No Vision needs: Yes (wear glasses) Questionnaire Medicare Wellness Checkup What [age]?: [age] What gender do you identify with?: female During the past 4 weeks, how much have you been bothered by emotional problems such as feeling anxious, depressed, irritable, sad or downhearted, and blue?: not at all During the past 4 weeks, has your physical & emotional health limited your social activities with family, friends, neighbors, or groups?: slightly During the past 4 weeks, how much bodily pain have you generally had?: moderate pain During the past 4 weeks, was someone available to help you if you needed & wanted help?: yes, as much as I wanted During the past 4 weeks, what was the hardest physical activity you could do for at least 2 minutes?: heavy Can you get to places out of walking distance without help? (For eg., can you travel alone on buses, taxis or drive your car?): Yes Can you go shopping for groceries or clothes without someone's help?: Yes Can you prepare your own meals?: Yes Can you do your housework without help?: Yes Because of any health problems, do you need the help of another person with your personal care needs such as eating, bathing, dressing or getting around the house?: No Can you handle your own money without help?: Yes During the past 4 weeks, how would you rate your health in general?: very good During the past 4 weeks how have things been going for you?: pretty well Are you having difficulties driving your car?: no Do you always fasten your seat belt when you are in a car?: yes, usually During past 4 weeks, have you been bothered by the following: never: Falling or dizzy when standing up, Sexual problems?, Trouble eating well?, Teeth or denture problems?, Problems using the telephone? and Tiredness or fatigue? Have you fallen 2 or more times in the past year?: No Are you afraid of falling?: Yes Are you a smoker?: no During the past 4 weeks, how many drinks of wine, beer, or other alcoholic beverages did you have?: 1 drink or less per week Do you exercise for about 20 minutes 3 or more times a week?: yes, all the time Have you been given information to help with the following?: yes: Hazards in your house that might hurt you? and yes: Keeping track of your medications? How often do you have trouble taking medicines the way you have been told to take them?: I always take medicine as prescribed How confident are you that you can control & manage most of your health problems?: very confident What is your race?: White Activity of Daily Living Bathing - sponge bath, tub bath or shower: receives no assistance (gets in/out by self, if usual bathing means Dressing - getting clothes from closets & drawers, including inner/outer garments & fasteners.: gets clothes & gets completely dressed without help Toileting - going to the 'toilet room' for urine/bowel elimination & cleaning self/arranging clothes: goes to toilet room, cleans self, arranges clothes without help Transfer: moves in & out of bed and chair without help (may use support object) Continence: controls urination/bowel movements completely by self Feeding: feeds self without help Total Score: 0 Information obtained from: patient Using telephone: independent Traveling: independent Shopping: independent Preparing meals: independent Housework: independent Taking medicine: independent Managing money: independent PHQ-9 Over the last 2 weeks, how often have you been bothered by any of the following problems? 1. Little interest or pleasure in doing things: not at all 2. Feeling down, depressed, or hopeless: not at all 3. Trouble falling or staying asleep, or sleeping too much: not at all 4. Feeling tired or having little energy: not at all 5. Poor appetite or overeating: not at all 6. Feeling bad about yourself - or that you are a failure or have let yourself or your family down: not at all 7. Trouble concentrating on things, such as reading the newspaper or watching television: not at all 8. Moving or speaking so slowly that other people could have noticed. Or the opposite - being so fidgety or restless that you have been moving around a lot more than usual: not at all 9. Thoughts that you would be better off or of hurting yourself in some way: not at all Total score: 0 Depression Screening Interpretation: Negative Depression Screening Done: Yes 59861 - PHQ-9 Billing: Yes Source: Developed by Drs. Ervin Daniel, Tessie Palumbo, Elliot Fonseca and colleagues, with an educational toribio from [employer]. Physical Exam Vital Signs: Last Vital Signs Pulse 78 11/04/24 10:22 BP 118/62 11/04/24 11:11 Pulse Ox 97 11/04/24 10:22 Oxygen Delivery Method Room Air 11/04/24 10:22 BMI result Body Mass Index 23.9 Office Procedures AMB Patient Education/Training AMB Patient Education/Training Documentation: [id number] Separately and distinctly, 8 minutes face to face counseling on risk factor reduction related to diet, exercise, weight management, sexual health, immunization, injury prevention. Medical necessity includes review of VS, BMI, current medications, age/race/gender to identify risks. Patient was provided with a wellness handout at the time of discharge. EKG [id number], Complete Flu Questionnaire Does the patient have a severe egg allergy?: No Does the patient have severe life threatening allergies?: No Does the patient have a fever or illness today?: No Has the patient ever had Guillain-Reading Syndrome?: No Has the patient ever had any past reaction to a flu shot?: No Vision Screening Right Eye: 20/40 Left Eye: 20/40 Bilateral: 20/40 84771 - Vision Screening Results AMB Hemoglobin A1c AMB Hemoglobin A1c 5.2 % Last Edit by Stacie Sarah CMA on 11/04/24 10:49 Immunizations Fluarix [id number] (PF) 45 mcg (15 mcg x 3)/0.5 mL IM syringe Performing Provider: BRENT Moreno Performing Location: [facility] Administered by: Stacie Sarah CMA on 11/04/24 11:40 Dose Route Admin Location Dispensed Lot Number Expiration Date [facility] Fitter Up 0.5 mL IM Left Deltoid 0.5 mL [id number] 08/15/25 [id number] aCon VIS Given Date VIS Provided VIS Publication Date 11/04/24 Single Vaccine 24 Eligibility Eligibility Date Funding Source Not VF Eligible 11/04/24 Private Results Reviewed Results Reviewed: Laboratory Last Values Hgb A1c (Clinic) 5.2 % (4.0-6.0) 11/04/24 10:48 Laboratory 10/24/24 Result Units Range Interpretation Provider Comments White Blood Count 4.4 X10*3/uL (4.8-10.8) Low Red Blood Count 3.94 X10*6/uL (4.20-5.50) Low Hemoglobin 11.9 g/dl (12.0-16.0) Low Hematocrit 37.2 % (37.0-47.0) Mean Corpuscular Volume 94.4 fL (80.0-98.0) Mean Corpuscular Hemoglobin 30.2 pg (27.0-33.0) Mean Corpuscular Hemoglobin Concent 32.0 g/dl (31.0-35.0) Red Cell Distribution Width 14.3 % (11.0-16.0) Platelet Count 405 X10*3/uL (160-400) High Mean Platelet Volume 9.5 fL (9.4-12.3) Nucleated RBC Absolute Count (auto) 0.000 X10*3/uL (0.0-0.012) Nucleated Red Blood Cells % (auto) 0.0 /100WBC (0.0-0.2) Sodium Level 139 mmol/L (135-145) Potassium Level 3.7 mmol/L (3.3-5.1) Chloride Level 104 mmol/L (96-108) Carbon Dioxide Level 26 mmol/L (22-29) Anion Gap 13 (12-20) Blood Urea Nitrogen 7 mg/dL (9-16) Low Creatinine 0.78 mg/dL (0.5-1.4) Estimated Creatinine Clearance Calc Not Reportable Estimat Glomerular Filtration Rate > 60 Random Glucose 80 mg/dL (60-115) Calcium Level 9.5 mg/dL (8.4-10.2) Iron Level 53 mcg/dL (30-160) Total Iron Binding Capacity 291 mcg/dL (228-428) Percent Iron Saturation 18 % (15-50) Unsaturated Iron Binding 238 ug/dL Ferritin 27 ng/mL (10-250) Total Bilirubin 0.3 mg/dL (0.0-1.0) Aspartate Amino Transf (AST/SGOT) 45 U/L (5-31) High Alanine Aminotransferase (ALT/SGPT) 24 U/L (0-31) Alkaline Phosphatase 92 U/L (39-117) Total Protein 7.3 g/dL (6.5-8.0) Albumin 4.5 g/dL (3.5-5.0) Triglycerides Level 118 mg/dL (<150) Cholesterol Level 190 mg/dL (<200) LDL Cholesterol, Calculated 104 mg/dL (<100) High HDL Cholesterol 63 mg/dL (>40) 25-Hydroxy Vitamin D Total 61.5 ng/mL (>30) Thyroid Stimulating Hormone (TSH) 2.85 uIU/mL (0.32-4.0) Assessment & Plan Assessment & Plan (1) Encounter for subsequent annual wellness visit (AWV) in Medicare patient: Onset Date: ~11/04/24 Code(s): Z00.00 - Encounter for general adult medical examination without abnormal findings (2) ACP (advance care planning): Code(s): Z71.89 - Other specified counseling (3) Mild anemia: Code(s): D64.9 - Anemia, unspecified (4) Purpura: Code(s): D69.2 - Other nonthrombocytopenic purpura (5) Acquired hypothyroidism: Code(s): E03.9 - Hypothyroidism, unspecified (6) Influenza vaccination administered at current visit: Code(s): Z23 - Encounter for immunization (7) Immunization counseling: Code(s): Z71.85 - Encounter for immunization safety counseling (8) Hyperlipidemia: Code(s): E78.5 - Hyperlipidemia, unspecified Qualifiers: Hyperlipidemia type: mixed hyperlipidemia Qualified Code(s): E78.2 - Mixed hyperlipidemia (9) Essential (primary) hypertension: Code(s): I10 - Essential (primary) hypertension (10) VERENICE (generalized anxiety disorder): Code(s): F41.1 - Generalized anxiety disorder (11) Osteoporosis: Comment: dexa 2024 bailey Code(s): M81.0 - Age-related osteoporosis without current pathological fracture Qualifiers: Osteoporosis type: age-related Presence of current pathological fracture: without current pathological fracture Qualified Code(s): M81.0 - Age-related osteoporosis without current pathological fracture (12) Recurrent UTI: Code(s): N39.0 - Urinary tract infection, site not specified (13) Bursitis, hip: Code(s): M70.70 - Other bursitis of hip, unspecified hip Plan . Orders: Orders TSH reflex Free T4 6 Months E03.9 - Hypothyroidism, unspecified AMB Hemoglobin A1c Today Z13.9 - Encounter for screening, unspecified UA CC w/rflx Micro + Cult Today R30.0 - Dysuria Lipid Panel 6 Months E78.2 - Mixed hyperlipidemia Influenza [id number] Immunization Today Z23 - Encounter for immunization Referrals Hematology & Oncology Referral D64.9 - Anemia, unspecified, D69.2 - Other nonthrombocytopenic purpura Medications: Refilled sulfamethoxazole-trimethoprim 800-160 mg (Bactrim DS) TO BE USED TO TREAT ACUTE UTI ONLY 1 tab PO BID 6 tabs 1RF 3 days amlodipine 2.5 mg PO DAILY 90 tabs 1RF gabapentin 100 mg PO DAILY PRN 90 caps 2RF pain insomnia anxiety levothyroxine 75 mcg PO DAILY 90 tabs 1RF lovastatin 40 mg PO DAILY 90 tabs 2RF lorazepam 0.5 mg PO Q6H PRN 30 tabs 0RF anxiety Patient Instructions: D-mannose - try this to prevent UTI. Sarna anti-itch buy this over the counter Health screenings for women You should visit your health care provider from time to time, even if you are healthy. The purpose of these visits is to: Screen for medical issues Assess your risk for future medical problems Encourage a healthy lifestyle Update vaccinations and other preventive care services Help you get to know your provider in case of an illness Information Even if you feel fine, you should still see your provider for regular checkups. These visits can help you avoid problems in the future. For example, the only way to find out if you have high blood pressure is to have it checked regularly. High blood sugar and high cholesterol levels also may not have any symptoms in the early stages. A simple blood test can check for these conditions. There are specific times when you should see your provider or receive specific health screenings. The [place] Preventive Services Task Force publishes a list of recommended screenings. Below are screening guidelines for women ages 18 to 39. BLOOD PRESSURE SCREENING Your blood pressure should be checked at least once every 3 to 5 years if: Your blood pressure is in the normal range (top number less than 120 mm Hg and bottom number less than 80 mm Hg) You don't have risk factors for high blood pressure Ask your provider if you need your blood pressure checked more often if: The top number is 120 to 129 mm Hg or the bottom number is 70 to 79 mm Hg You have diabetes, heart disease, kidney problems, are overweight, or have certain other health conditions You have a first-degree relative with high blood pressure You are Black You had high blood pressure during a If the top number is 130 mm Hg or greater or the bottom number is 80 mm Hg or greater, this is considered stage 1 hypertension. Schedule an appointment with your provider to learn how you can reduce your blood pressure. Watch for blood pressure screenings in your area. Ask your provider if you can stop in to have your blood pressure checked. BREAST CANCER SCREENING Experts do not agree about the benefits of breast self-exams in finding breast cancer or saving lives. Talk to your provider about what is best for you. A screening mammogram is not recommended for most women under age 40. Your provider may discuss and recommend mammograms, MRI scans, or ultrasounds if you have an increased risk for breast cancer, such as: A mother or sister who had breast cancer at a young age (most often starting screening earlier than the age the close relative was diagnosed) You carry a high-risk genetic marker CERVICAL CANCER SCREENING Cervical cancer screening should start at age 21 years unless your provider advises otherwise. After the first test: Women ages 21 through 29 should have a Pap test every 3 years. Exoprts do not agree on whether HPV testing is recommended for this age group. Women ages 30 through 65 should be screened with either a Pap test every 3 years or the HPV test every 5 years or both tests every 5 years (called cotesting ). Women who have been treated for precancer (cervical dysplasia) should continue to have Pap tests for 20 years after treatment or until age 65, whichever is longer. If you have had your uterus and cervix removed (total hysterectomy), and you have not been diagnosed with cervical cancer or precancer (high grade cervical neoplasia), you do not need cervical cancer screening. CHOLESTEROL SCREENING Cholesterol screening should begin at: Age 45 for women with no known risk factors for coronary heart disease Age 20 for women with known risk factors for coronary heart disease Repeat cholesterol screening should take place: Every 5 years for women with normal cholesterol levels More often if changes occur in lifestyle (including weight gain and diet) More often if you have diabetes, heart disease, kidney problems, or certain other conditions DIABETES SCREENING You should be screened for diabetes starting at age 35 and then repeated every 3 years if you have no risk factors for diabetes. Screening may need to start earlier and be repeated more often if you have other risk factors for diabetes, such as: You have a first degree relative with diabetes. You are overweight or have obesity. You have high blood pressure, prediabetes, or a history of heart disease. Screening for diabetes should be done if you are planning to become and you are overweight and have other risk factors such as high blood pressure. DENTAL EXAM Go to the dentist once or twice every year for an exam and cleaning. Your dentist will evaluate if you need more frequent visits. EYE EXAM Have an eye exam every 5 to 10 years before age 40. If you have vision problems, have an eye exam every 2 years or more often if recommended by your provider. You should have an eye exam that includes an examination of your retina (back of your eye) at least every year if you have diabetes. IMMUNIZATIONS Commonly needed vaccines include: Flu shot: get one every year. COVID-19 vaccine: ask your provider what is best for you. Tetanus-diphtheria and acellular pertussis (Tdap) vaccine: have one at or after age 19 as one of your tetanus-diphtheria vaccines if you did not receive it as an adolescent. Tetanus-diphtheria: have a booster (or Tdap) every 10 years. Varicella vaccine: receive 2 doses if you never had chickenpox or the varicella vaccine. Hepatitis B vaccine: receive 2, 3, or 4 doses, depending on your exact circumstances. Measles, mumps, and rubella (MMR) vaccine: receive 1 to 2 doses if you are not already immune to MMR. Your provider can tell you if you are immune. Ask your provider about the human papillomavirus (HPV) vaccine if: You have not received the HPV vaccine in the past You have not completed the full vaccine series (you should catch up on this shot) Ask your provider if you should receive other immunizations if you have certain health problems that increase your risk for some diseases such as pneumonia. INFECTIOUS DISEASE SCREENING Women who are sexually active should be screened for chlamydia and gonorrhea up until age 25. Women 25 years and older should be screened for chlamydia and gonorrhea if at high risk. Screening for hepatitis C: All adults ages 18 to 79 should get a one-time test for hepatitis C. people should be screened at every . Screening for human immunodeficiency virus (HIV): All people ages 15 to 65 should get a one-time test for HIV. Depending on your lifestyle and medical history, you may also need to be screened for infections such as syphilis and HIV, as well as other infections. PHYSICAL EXAM All adults should visit their provider from time to time, even if they are healthy. The purpose of these visits is to: Screen for disease Assess your risk of future medical problems Encourage a healthy lifestyle Update your vaccinations and other preventive care services Maintain a relationship with a provider in case of an illness Your height, weight, and BMI should be checked at every exam. During your exam, your provider may ask you about: Depression and anxiety Diet and exercise Alcohol and tobacco use Safety issues, such as using seat belts, smoke detectors, and intimate partner violence Your medicines and risk for interactions SKIN SELF-EXAM Your provider may check your skin for signs of skin cancer, especially if you're at high risk, such as if you: Have had skin cancer before Have close relatives with skin cancer Have a weakened immune system OTHER SCREENING Talk with your provider about colon cancer screening if you have a strong family history of colon cancer or polyps, or if you have had inflammatory bowel disease or polyps yourself. Routine bone density screening of women under 40 is not recommended. Quality Reporting (2019) Adult ([facility] 138/04/09/68) Smoking risk assessment performed?: Yes Patient Tobacco Use Status: Never used Tobacco Depression screening performed: Yes Screen Results: Yes Negative screen Systolic BP not done?: No BMI screening not done: No Sexual Activity Screening ([facility] 153) Sexually active?: No Immunizations ([facility] 147, 117) Annual Influenza Vaccine: Yes Measles Antibody Test: No Mumps Antibody Test: No Rubella Antibody Test: No Varicella Antibody Test: No Anti Hepatitis A IgG Antigen test: No Anti Hepatitis B Virus Surface Ab test: No Fall Risk Screening ([facility] 139) Last assessed Fall Risk: 11/04/24 Fall risk assessment: No Falls in past year Dementia Assessment ([facility] 149) Cognitive assessment recorded: Yes Assessment of cognition with standardized tool: Yes Depression/Bipolar (159/160/161/177) PHQ-9: Total score: 0 Ophthalmol:Cataracts Visual Acuity (133) Visual acuity exam performed: Yes (see results) Coding Level of Care Code Medicare Subsequent (G0439) Est Pt Level 4 (76025) Diagnoses Encounter for subsequent annual wellness visit (AWV) in Medicare patient Z00.00 ACP (advance care planning) Z71.89 Mild anemia D64.9 Purpura D69.2 Acquired hypothyroidism E03.9 Influenza vaccination administered at current visit Z23 Immunization counseling Z71.85 Mixed hyperlipidemia E78.2 Hyperlipidemia type: mixed hyperlipidemia Essential (primary) hypertension I10 VERENICE (generalized anxiety disorder) F41.1 Age-related osteoporosis without current pathological fracture M81.0 Osteoporosis type: age-related Presence of current pathological fracture: without current pathological fracture Recurrent UTI N39.0 Bursitis, hip M70.70 CPT Codes Advance Care Planning - Time spent: 16-45 minutes ([id number]) EKG - CPT: 61645-Bzuwklbrfowicqrhn, Complete ([id number]) Vision Screening - Vision Screenin - Vision Screening ([id number]) Additional Codes PHQ-9 - 35090 - PHQ-9 Billing: Yes ([id number]) Advance Care Planning Advance Care Planning discussion: Exists, not on file Date of discussion: 11/04/24 Who was present: self Forms completed: Health Care Proxy, MOLST and Living will Time spent: 16-45 minutes Actual minutes spent: 16
--- OUTSIDE RECORDS SUMMARY | 2024-11-04 10:50 | XMS_ITS | Clinical Summary ---
Author Organization [facility] Address [address] [place] [address] Care Team Providers Care Mechanical Applications Engineer Name Role Phone Shalini Hanley MD Primary [...] age to complete this topic Care Teams Mechanical Applications Engineer Relationship Specialty Start Date End Date Shalini Hanley MD PCP - General Internal Medicine 10/22/16
--- OUTSIDE RECORDS SUMMARY | 2024-11-04 10:50 | XMS_ITS | Clinical Summary ---
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
[2024-11-04 11:11] VITALS: BP 118/62
== END 2024-11-04 11:45 | disposition home or self-care (01) ==
LOC: HO.HMCFM 10:15
PROVIDERS: PCP Nurse Practitioner Family; Visit Provider Nurse Practitioner Family
DX: Z00.00 Encounter for general adult medical examination without abnormal findings (principal); D64.9 Anemia, unspecified; D69.2 Other nonthrombocytopenic purpura; E03.9 Hypothyroidism, unspecified; Z71.89 Other specified counseling; Z23 Encounter for immunization; Z71.85 Encounter for immunization safety counseling; E78.2 Mixed hyperlipidemia; I10 Essential (primary) hypertension; F41.1 Generalized anxiety disorder; M81.0 Age-related osteoporosis without current pathological fracture; N39.0 Urinary tract infection, site not specified

== ENCOUNTER → 2024-11-04 10:14 | Outpatient (BNVA) | payer MEDICARE, SELFPAY | PROVIDERS: PCP Nurse Practitioner Family; Visit Provider Nurse Practitioner Family | DX: Z00.00 Encounter for general adult medical examination without abnormal findings (principal); M81.0 Age-related osteoporosis without current pathological fracture; I10 Essential (primary) hypertension; E03.9 Hypothyroidism, unspecified; F41.1 Generalized anxiety disorder; D64.9 Anemia, unspecified; D69.2 Other nonthrombocytopenic purpura; E78.2 Mixed hyperlipidemia; R30.0 Dysuria; Z87.440 Personal history of urinary (tract) infections; Z71.89 Other specified counseling; Z79.899 Other long term (current) drug therapy | CPT/HCPCS: 83036; 90471; 90656; 93005; 96127; 99212; 99497 ==

== ENCOUNTER 2024-11-23 08:11 | Outpatient (AMB) | payer MEDICARE, SELFPAY ==
--- NOTE | 2024-11-23 08:37 | A.OFFVIS_ITS ---
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 Referred by PCP, patient previously seen at [facility] and was given an injection on 07/20/24, she transferred her medial records as she was not happy with her care. Today patient reports her pain is mostly located at the lateral aspect of hip and shoots down leg. States at time in her buttocks area and travels down the back of her leg. She complains of numbness in her leg. Finds it difficult to lift her leg to get in and out of car as well as discomfort with sleeping. She uses meloxicam once a day and Tylenol arthritis as needed. Patient finds relief with injections and would like to discuss repeat of injection today. 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 She states she has had an injection in the right greater troch with relief for 5 weeks. Had about 4 injection in the right hip,she also did PT. She complains of pain along the lateral side of the hip which affects her ability to sleep on her side and walk long distances. She also takes meloxicam once a day. [facility] Medical History (Updated 11/23/24 @ 09:21 by Donte Granados PA-C) Anxiety Osteoporosis Arthritis H/O thyroid disease High cholesterol HTN (hypertension) Hernia (~2019) Biceps tendinitis of shoulder (~2019) Colon, diverticulosis (~2016) Surgical History Hx of spinal surgery (~2015) H/O shoulder surgery (~2016) H/O elbow surgery (~2000) H/O: hysterectomy History of incisional hernia repair (~2019) History of mammogram (~2024) History of colonoscopy (~2006) Family History Mother HTN (hypertension) Diabetes Sister HTN (hypertension) Diabetes Thyroid disorder High cholesterol Father Stomach cancer Social History Household Members: None Both parents involved: No Caregiver staying overnight: No Housing: House Are you a primary medical care evaluation specialist to a significant other at home: No Do you presently have visiting nurse or other home services: No 75 years or older and lives alone: No Alcohol intake: current Alcohol intake frequency: a few times a month Patient Tobacco Use Status: Never used Tobacco e-Cigarette/Vaping Use: Never Used Second Hand Smoke Exposure: No service: No Current occupational status: retired Cognitive needs: No Hearing needs: No Vision needs: Yes (wear glasses) Review of Systems Const All systems reviewed & are unremarkable except as noted in HPI and below Physical Exam Vital Signs: BMI result Body Mass Index 23.8 Const General: cooperative and no acute distress Orientation/consciousness: patient oriented x3 Resp Effort & Inspection: normal respiratory effort and able to speak in complete sentences Cardio Peripheral pulses: Peripheral pulses 2+ throughout Neuro General: patient oriented x3 Extrem Other: Right hip normal to inspection. No pain with ROM of the hip. Pain along the greater trochanter. No pain with hip flexion or abduction.There is tenderness along the si joint, Negative SLR. NVI. Office Procedures AMB Joint Injection/Aspiration Joint Injection/Aspiration Details: right hip bursa Prep: site was prepped using aseptic technique, ethochloride spray was applied and injection warnings given Injected: 40 mg of, with 3 mL of, 1% plain lidocaine, 0.25% bupivacaine and decadron Procedure: The patient tolerated the procedure well and there was some relief with the local anesthesia Coding 37993 - Glenohumeral/Tronchanteric Bursa/Intraarticular Procedure code (CPT) selection complete Results Reviewed Results Reviewed: X-rays of the right hip obtained in the office today and reviewed by me show mild arthritis Assessment & Plan Assessment & Plan (1) Trochanteric bursitis, right hip: Code(s): M70.61 - Trochanteric bursitis, right hip Category: Medical Plan: We discussed options today which include repeat injection of the right trochanteric bursa which she would like to pursue. The patient tolerated the procedure well. We also discussed management with strengthening exercises which I did demonstrate to her in the office today. We also switched her meloxicam over to Celebrex which she will take twice a day for 2 weeks for acute flare- ups. She will make an appointment in 3 months for repeat injection if she continues to have discomfort otherwise she will follow up as needed. Orders: Orders XR hip RT min 2V Today M25.551 - Pain in right hip Medications: New celecoxib (Celebrex) 200 mg PO BID 60 caps 3RF 30 days Coding Level of Care Code New Pt Level 3 (28580) Complex EM visit Add On G2211 Diagnoses Trochanteric bursitis, right hip M70.61 CPT Codes Coding - Joint 7: 38071 - Glenohumeral/Tronchanteric Bursa/Intraarticular ([id number])
[2024-11-23 08:40] VITALS: BMI 23.8
== END 2024-11-23 10:08 | disposition home or self-care (01) ==
LOC: HO.HOS 08:13
PROVIDERS: PCP Nurse Practitioner Family; Visit Provider Physician Assistant
DX: M70.61 Trochanteric bursitis, right hip (principal)
CPT/HCPCS: 20610; 99203

== ENCOUNTER → 2024-11-23 08:15 | Outpatient (BNV) | payer MEDICARE, SELFPAY | PROVIDERS: Visit Provider Radiology Diagnostic Ultrasound | DX: M25.551 Pain in right hip (principal) | CPT/HCPCS: 73502 ==

== ENCOUNTER 2024-11-23 09:59 | Outpatient (REF) | payer MEDICARE, SELFPAY ==
--- NOTE | ~2024-11-23 | XR_ITS ---
EXAMINATION: XR HIP, RIGHT CLINICAL INFORMATION: M25.551 - Pain in right hip COMPARISON: None available. TECHNIQUE: 3 views of the right hip. FINDINGS: Mild right hip arthritis, mild acetabular sclerosis, minimal subchondral cysts. No acute fracture or dislocation. Spurring at the superior right greater tuberosity. Mild left hip arthritis. No acute fracture or dislocation. Symphysis pubis degeneration. SI joints are symmetric. No acute pelvic fracture seen. No worrisome lytic or blastic lesions. Vascular calcifications. Spondylosis in the visualized lower lumbar spine. XR/XR hip RT min 2V IMPRESSION: Mild bilateral hip arthritis. No radiographic evidence of acute fracture. Electronically signed by: Caleb Beth MD 11/23/2024 08:29 AM EDT
== END 2024-11-23 10:00 | disposition home or self-care (01) ==
LOC: HO.HOSX 09:59
PROVIDERS: Visit Provider Physician Assistant
DX: M70.61 Trochanteric bursitis, right hip (principal)
CPT/HCPCS: 20610; 73502; 99202; J0665; J1100; J2003

== ENCOUNTER → 2024-12-20 10:22 | Outpatient (BNV) | payer MEDICARE, SELFPAY | PROVIDERS: PCP Family Medicine; Visit Provider Internal Medicine Medical Oncology | DX: D64.9 Anemia, unspecified (principal) | CPT/HCPCS: 99203 ==

== ENCOUNTER 2025-01-05 09:30 | Outpatient (RCR) | payer MEDICARE, SELFPAY | END 2025-01-05 16:14 | disposition home or self-care (01) | LOC: HO.WCC 09:30 | PROVIDERS: PCP Nurse Practitioner Family; Visit Provider Surgery Surgical Oncology | DX: S81.812A Laceration without foreign body, left lower leg, initial encounter (principal); I10 Essential (primary) hypertension; W22.8XXA Striking against or struck by other objects, initial encounter; Y93.9 Activity, unspecified; Y92.9 Unspecified place or not applicable; Y99.9 Unspecified external cause status; Z87.891 Personal history of nicotine dependence | CPT/HCPCS: 97597; 99212; 99213 ==